=== PATIENT | female | born 1970 | race Caucasian/White ===

== ENCOUNTER 2019-01-12 17:37 | Inpatient (IN) | payer BC, MEDICARE ==
[2019-01-12] MEDS ORDERED: SODIUM CHLORIDE 0.9% 1,000 ML IV STA (18:12)
[2019-01-12] MEDS ORDERED: SODIUM CHLORIDE 0.9% 500 ML 500 ML IV STA (18:12)
[2019-01-12] MEDS ORDERED: SODIUM CHLORIDE 0.9% 1,000 ML IV ONE (18:13)
--- NOTE | 2019-01-12 18:25 | ED ---
Weakness HPI - General Source: patient, family Mode of arrival: wheelchair Limitations: no limitations <Adriana Knox - Last Filed: 01/12/19 23:03> <GagansindiWanda Elvin - Last Filed: 01/15/19 02:29> - General Chief complaint: Weakness Stated complaint: Weakness Time Seen by Provider: 01/12/19 18:01 - History of Present Illness Initial comments: 48-year-old female with history of malnutrition, hypoalbuminemia, chronic back pain with morphine pump, chronic hypotension presents emergency department today for chief complaint of generalized weakness. Patient states she was recently discharged approximately 3-4 days ago from [facility] where she was admitted for malnutrition, hypoalbuminemia, urinary tract infection. Patient states that since her discharge she has had increasing weakness. She describes this as generalized denies any localized weakness of the upper or lower extremities denies any headache nausea vomiting diarrhea melena hematochezia. Patient does admit to upper and lower extremity swelling that has been ongoing for "quite some time". Patient had an echocardiogram with unremarkable results, cardiology evaluation by Dr. Ambriz. Patient denies any chest pain shortness of breath abdominal pain or any other complaints remaining review of systems negative upon arrival patient blood pressure found to be decreased. (Adriana Knox) - Related Data Home Medications Medication Instructions Recorded Confirmed FLUoxetine HCL [PROzac] 40 mg PO DAILY 01/23/15 01/12/19 Potassium Chloride [Klor-Con 10] 10 meq PO BID 01/23/15 01/12/19 Cholestyramine (with Sugar) 4 gm PO DAILY PRN 01/12/19 01/12/19 [Cholestyramine Packet] Ergocalciferol (Vitamin D2) 50,000 unit PO MO 01/12/19 01/12/19 [Drisdol] FLUoxetine HCL [PROzac] 20 mg PO DAILY 01/12/19 01/12/19 Hyoscyamine Sulfate [Levbid] 0.375 mg PO DAILY 01/12/19 01/12/19 Levothyroxine Sodium [Synthroid] 100 mcg PO DAILY 01/12/19 01/12/19 Morphine 1mg/1ml Pain Pump 1 dose INTRATHECA CONTINUOUS 01/12/19 01/12/19 Pantoprazole [Protonix] 40 mg PO DAILY 01/12/19 01/12/19 Pramipexole [Mirapex] 0.25 mg PO HS 01/12/19 01/12/19 Promethazine HCl 12.5 mg PO Q6H PRN 01/12/19 01/12/19 lamoTRIgine [LaMICtal] 250 mg PO BID 01/12/19 01/12/19 risperiDONE [RisperDAL] 1 mg PO HS 01/12/19 01/12/19 Allergies Allergy/AdvReac Type Severity Reaction Status Date / Time Penicillins Allergy Unknown Verified 01/12/19 21:18 Sulfa (Sulfonamide Allergy Unknown Verified 01/12/19 21:18 Antibiotics) Review of Systems ROS Other: All systems not noted in ROS Statement are negative. <Adriana Knox - Last Filed: 01/12/19 23:03> ROS Other: All systems not noted in ROS Statement are negative. <Wanda Santillan - Last Filed: 01/15/19 02:29> ROS Statement: Those systems with pertinent positive or pertinent negative responses have been documented in the HPI. Past Medical History Additional Past Medical History / Comment(s): chronic pain History of Any Multi-Drug Resistant Organisms: None Reported Additional Past Surgical History / Comment(s): pain pump Past Psychological History: No Psychological Hx Reported Smoking Status: Current every day smoker Past Alcohol Use History: None Reported Past Drug Use History: None Reported - Past Family History Father Family Medical History: Diabetes Mellitus, Renal Disease <Adriana Knox - Last Filed: 01/12/19 23:03> General Exam Limitations: no limitations <Adriana Knox - Last Filed: 01/12/19 23:03> - General Exam Comments Initial Comments: General: The patient is awake and alert, drowsy Eye: +2 mm pupils are equal, round and reactive to light, extra-ocular movements are intact. No nystagmus. There is normal conjunctiva bilaterally. No signs of icterus. Ears, nose, mouth and throat: There are moist mucous membranes and no oral lesions. Neck: The neck is supple, there is no tenderness or JVD. Cardiovascular: There is a regular rate and rhythm. No murmur, rub or gallop is appreciated. Respiratory: Lungs are clear to auscultation, respirations are non-labored, breath sounds are equal. No wheezes, stridor, rales, or rhonchi. Gastrointestinal: Soft, non-distended, non-tender abdomen without masses or organomegaly noted. There is no rebound or guarding present. Musculoskeletal: Normal ROM, no tenderness. Strength 5/5. Sensation intact. Radial pulses equal bilaterally 2+. Neurological: A&O x 3. CN II-XII intact, There are no obvious motor or sensory deficits. Coordination appears grossly intact. Speech is normal. Skin: Skin is warm and dry and no rashes or lesions are noted. UE and LE b/l edema Psychiatric: Cooperative (Adriana Knox) Course Vital Signs 01/12/19 01/12/19 01/12/19 17:45 19:38 21:18 Temperature 98.0 F 98.6 F Pulse Rate 97 93 Respiratory 18 16 18 Rate Blood Pressure 88/59 86/48 O2 Sat by Pulse 97 100 Oximetry EKG Findings - EKG Comments: EKG Findings:: Ventricular rate 93 bpm, MT interval 126 ms, QRS duration 78 ms, QT/QTc 432/537. Nonspecific ST-T wave abnormality. Prolonged QT however there is significant artifact appreciated. EKG personally reviewed/interpretted. <Adriana Knox - Last Filed: 01/12/19 23:03> Medical Decision Making - Lab Data Result diagrams: 01/12/19 18:30 01/12/19 18:30 <Adriana Knox - Last Filed: 01/12/19 23:03> - Lab Data Result diagrams: 01/14/19 06:47 01/14/19 06:47 <Wanda Santillan - Last Filed: 01/15/19 02:29> - Medical Decision Making 48-year-old female recently admitted for malnutrition hypoalbuminemia. Recent weight loss over course of 2 months with progressive weakness. Recent d/c from [facility]. Patient found to be drowsy, given narcan as she is on morphine drip and was much more alert. [place] CT (-). CXR no significant findings. Urinalysis reveals UTI patient given ceftriaxone. Patient will be admitted for further evaluation of weight loss, generalized weakness hypoalbuminemia/nutrition consider TPN gastroenterology on consult. Patient agreeable to admission. Dr. Liz accepted admission' (Adriana Knox) I was available for consultation in the emergency department. The history and physical exam were done by the midlevel provider. I was consulted for this patients care. I reviewed the case with the midlevel provider and based on their presentation of the patient, I agree with the assessment, medical decision making and plan of care as documented. Chart was dictated using WiC[employer] dictation software. Attempts were made to correct any dictation errors however some typographical errors may persist. (Wanda Santillan) - Lab Data Lab Results 01/12/19 01/12/19 01/12/19 Range/Units 18:30 18:30 18:30 WBC 11.4 H (3.8-10.6) k/uL RBC 2.55 L (3.80-5.40) m/uL Hgb 8.5 L (11.4-16.0) gm/dL Hct 26.7 L (34.0-46.0) % MCV 104.7 H (80.0-100.0) fL MCH 33.5 (25.0-35.0) pg MCHC 32.0 (31.0-37.0) g/dL RDW 16.9 H (11.5-15.5) % Plt Count 392 (150-450) k/uL Neutrophils % 90 % Lymphocytes % 7 % Monocytes % 2 % Eosinophils % 0 % Basophils % 0 % Neutrophils # 10.2 H (1.3-7.7) k/uL Lymphocytes # 0.8 L (1.0-4.8) k/uL Monocytes # 0.3 (0-1.0) k/uL Eosinophils # 0.0 (0-0.7) k/uL Basophils # 0.0 (0-0.2) k/uL Hypochromasia Slight Anisocytosis Slight Macrocytosis Moderate PT (9.0-12.0) sec INR (<1.2) APTT (22.0-30.0) sec Sodium 136 L (137-145) mmol/L Potassium 3.5 (3.5-5.1) mmol/L Chloride 102 (98-107) mmol/L Carbon Dioxide 29 (22-30) mmol/L Anion Gap 5 mmol/L BUN 12 (7-17) mg/dL Creatinine 0.42 L (0.52-1.04) mg/dL Est GFR (CKD-EPI)AfAm >90 (>60 ml/min/1.73 sqM) Est GFR (CKD-EPI)NonAf >90 (>60 ml/min/1.73 sqM) Glucose 83 (74-99) mg/dL POC Glucose (mg/dL) (75-99) mg/dL POC Glu Marketing Analyst ID Plasma Lactic Acid Nikko 1.7 (0.7-2.0) mmol/L Calcium 7.7 L (8.4-10.2) mg/dL Phosphorus 2.3 L (2.5-4.5) mg/dL Magnesium 1.7 (1.6-2.3) mg/dL Total Bilirubin 1.2 (0.2-1.3) mg/dL AST 127 H (14-36) U/L ALT 51 (9-52) U/L Alkaline Phosphatase 265 H (38-126) U/L Ammonia <9 (<30) umol/L Creatine Kinase 167 H (30-135) U/L Troponin I (0.000-0.034) ng/mL Total Protein 4.8 L (6.3-8.2) g/dL Albumin 2.2 L (3.5-5.0) g/dL TSH 3.000 (0.465-4.680) mIU/L Urine Color Urine Appearance (Clear) Urine pH (5.0-8.0) Ur Specific Hitchins (1.001-1.035) Urine Protein (Negative) Urine Glucose (UA) (Negative) Urine Ketones (Negative) Urine Blood (Negative) Urine Nitrite (Negative) Urine Bilirubin (Negative) Urine Urobilinogen (<2.0) mg/dL Ur Leukocyte Esterase (Negative) Urine RBC (0-5) /hpf Urine WBC (0-5) /hpf Ur Squamous Epith Cells (0-4) /hpf Urine Bacteria (None) /hpf Urine Mucus (None) /hpf Serum Alcohol <10 mg/dL Blood Type Blood Type Confirm Blood Type Recheck Bld Type Recheck Status Antibody Screen Spec Expiration Date 01/12/19 01/12/19 01/12/19 Range/Units 18:30 18:30 18:30 WBC (3.8-10.6) k/uL RBC (3.80-5.40) m/uL Hgb (11.4-16.0) gm/dL Hct (34.0-46.0) % MCV (80.0-100.0) fL MCH (25.0-35.0) pg MCHC (31.0-37.0) g/dL RDW (11.5-15.5) % Plt Count (150-450) k/uL Neutrophils % % Lymphocytes % % Monocytes % % Eosinophils % % Basophils % % Neutrophils # (1.3-7.7) k/uL Lymphocytes # (1.0-4.8) k/uL Monocytes # (0-1.0) k/uL Eosinophils # (0-0.7) k/uL Basophils # (0-0.2) k/uL Hypochromasia Anisocytosis Macrocytosis PT 12.1 H (9.0-12.0) sec INR 1.2 H (<1.2) APTT 24.5 (22.0-30.0) sec Sodium (137-145) mmol/L Potassium (3.5-5.1) mmol/L Chloride (98-107) mmol/L Carbon Dioxide (22-30) mmol/L Anion Gap mmol/L BUN (7-17) mg/dL Creatinine (0.52-1.04) mg/dL Est GFR (CKD-EPI)AfAm (>60 ml/min/1.73 sqM) Est GFR (CKD-EPI)NonAf (>60 ml/min/1.73 sqM) Glucose (74-99) mg/dL POC Glucose (mg/dL) (75-99) mg/dL POC Glu Marketing Analyst ID Plasma Lactic Acid Nikko (0.7-2.0) mmol/L Calcium (8.4-10.2) mg/dL Phosphorus (2.5-4.5) mg/dL Magnesium (1.6-2.3) mg/dL Total Bilirubin (0.2-1.3) mg/dL AST (14-36) U/L ALT (9-52) U/L Alkaline Phosphatase (38-126) U/L Ammonia (<30) umol/L Creatine Kinase (30-135) U/L Troponin I <0.012 (0.000-0.034) ng/mL Total Protein (6.3-8.2) g/dL Albumin (3.5-5.0) g/dL TSH (0.465-4.680) mIU/L Urine Color Urine Appearance (Clear) Urine pH (5.0-8.0) Ur Specific Hitchins (1.001-1.035) Urine Protein (Negative) Urine Glucose (UA) (Negative) Urine Ketones (Negative) Urine Blood (Negative) Urine Nitrite (Negative) Urine Bilirubin (Negative) Urine Urobilinogen (<2.0) mg/dL Ur Leukocyte Esterase (Negative) Urine RBC (0-5) /hpf Urine WBC (0-5) /hpf Ur Squamous Epith Cells (0-4) /hpf Urine Bacteria (None) /hpf Urine Mucus (None) /hpf Serum Alcohol mg/dL Blood Type O Positive Blood Type Confirm Blood Type Recheck No Previous Record Bld Type Recheck Status CABO Indicated Antibody Screen NEGATIVE Spec Expiration Date 01/15/2019232901/12/19 01/12/19 01/13/19 Range/Units 18:30 18:36 07:09 WBC 8.3 (3.8-10.6) k/uL RBC 2.34 L (3.80-5.40) m/uL Hgb 7.8 L (11.4-16.0) gm/dL Hct 24.2 L (34.0-46.0) % MCV 103.2 H (80.0-100.0) fL MCH 33.3 (25.0-35.0) pg MCHC 32.2 (31.0-37.0) g/dL RDW 17.0 H (11.5-15.5) % Plt Count 373 (150-450) k/uL Neutrophils % 86 % Lymphocytes % 10 % Monocytes % 4 % Eosinophils % 1 % Basophils % 0 % Neutrophils # 7.1 (1.3-7.7) k/uL Lymphocytes # 0.8 L (1.0-4.8) k/uL Monocytes # 0.3 (0-1.0) k/uL Eosinophils # 0.1 (0-0.7) k/uL Basophils # 0.0 (0-0.2) k/uL Hypochromasia Anisocytosis Slight Macrocytosis Moderate PT (9.0-12.0) sec INR (<1.2) APTT (22.0-30.0) sec Sodium (137-145) mmol/L Potassium (3.5-5.1) mmol/L Chloride (98-107) mmol/L Carbon Dioxide (22-30) mmol/L Anion Gap mmol/L BUN (7-17) mg/dL Creatinine (0.52-1.04) mg/dL Est GFR (CKD-EPI)AfAm (>60 ml/min/1.73 sqM) Est GFR (CKD-EPI)NonAf (>60 ml/min/1.73 sqM) Glucose (74-99) mg/dL POC Glucose (mg/dL) (75-99) mg/dL POC Glu Marketing Analyst ID Plasma Lactic Acid Nikko (0.7-2.0) mmol/L Calcium (8.4-10.2) mg/dL Phosphorus (2.5-4.5) mg/dL Magnesium (1.6-2.3) mg/dL Total Bilirubin (0.2-1.3) mg/dL AST (14-36) U/L ALT (9-52) U/L Alkaline Phosphatase (38-126) U/L Ammonia (<30) umol/L Creatine Kinase (30-135) U/L Troponin I (0.000-0.034) ng/mL Total Protein (6.3-8.2) g/dL Albumin (3.5-5.0) g/dL TSH (0.465-4.680) mIU/L Urine Color Dark Brown Urine Appearance Cloudy H (Clear) Urine pH 6.5 (5.0-8.0) Ur Specific Hitchins 1.032 (1.001-1.035) Urine Protein 2+ H (Negative) Urine Glucose (UA) Negative (Negative) Urine Ketones 4+ H (Negative) Urine Blood Moderate H (Negative) Urine Nitrite Positive H (Negative) Urine Bilirubin 1+ H (Negative) Urine Urobilinogen >12.0 (<2.0) mg/dL Ur Leukocyte Esterase Large H (Negative) Urine RBC 148 H (0-5) /hpf Urine WBC >182 H (0-5) /hpf Ur Squamous Epith Cells 1 (0-4) /hpf Urine Bacteria Occasional H (None) /hpf Urine Mucus Many H (None) /hpf Serum Alcohol mg/dL Blood Type Blood Type Confirm O Positive Blood Type Recheck Bld Type Recheck Status Antibody Screen Spec Expiration Date 01/13/19 01/13/19 Range/Units 07:09 12:02 WBC (3.8-10.6) k/uL RBC (3.80-5.40) m/uL Hgb (11.4-16.0) gm/dL Hct (34.0-46.0) % MCV (80.0-100.0) fL MCH (25.0-35.0) pg MCHC (31.0-37.0) g/dL RDW (11.5-15.5) % Plt Count (150-450) k/uL Neutrophils % % Lymphocytes % % Monocytes % % Eosinophils % % Basophils % % Neutrophils # (1.3-7.7) k/uL Lymphocytes # (1.0-4.8) k/uL Monocytes # (0-1.0) k/uL Eosinophils # (0-0.7) k/uL Basophils # (0-0.2) k/uL Hypochromasia Anisocytosis Macrocytosis PT (9.0-12.0) sec INR (<1.2) APTT (22.0-30.0) sec Sodium 140 (137-145) mmol/L Potassium 3.2 L (3.5-5.1) mmol/L Chloride 108 H (98-107) mmol/L Carbon Dioxide 25 (22-30) mmol/L Anion Gap 7 mmol/L BUN 11 (7-17) mg/dL Creatinine 0.40 L (0.52-1.04) mg/dL Est GFR (CKD-EPI)AfAm >90 (>60 ml/min/1.73 sqM) Est GFR (CKD-EPI)NonAf >90 (>60 ml/min/1.73 sqM) Glucose 62 L (74-99) mg/dL POC Glucose (mg/dL) 82 (75-99) mg/dL POC Glu Marketing Analyst ID Ziarko, Diana Plasma Lactic Acid Nikko (0.7-2.0) mmol/L Calcium 7.3 L (8.4-10.2) mg/dL Phosphorus (2.5-4.5) mg/dL Magnesium (1.6-2.3) mg/dL Total Bilirubin (0.2-1.3) mg/dL AST (14-36) U/L ALT (9-52) U/L Alkaline Phosphatase (38-126) U/L Ammonia (<30) umol/L Creatine Kinase (30-135) U/L Troponin I (0.000-0.034) ng/mL Total Protein (6.3-8.2) g/dL Albumin (3.5-5.0) g/dL TSH (0.465-4.680) mIU/L Urine Color Urine Appearance (Clear) Urine pH (5.0-8.0) Ur Specific Hitchins (1.001-1.035) Urine Protein (Negative) Urine Glucose (UA) (Negative) Urine Ketones (Negative) Urine Blood (Negative) Urine Nitrite (Negative) Urine Bilirubin (Negative) Urine Urobilinogen (<2.0) mg/dL Ur Leukocyte Esterase (Negative) Urine RBC (0-5) /hpf Urine WBC (0-5) /hpf Ur Squamous Epith Cells (0-4) /hpf Urine Bacteria (None) /hpf Urine Mucus (None) /hpf Serum Alcohol mg/dL Blood Type Blood Type Confirm Blood Type Recheck Bld Type Recheck Status Antibody Screen Spec Expiration Date Disposition Is patient prescribed a controlled substance at d/c from ED?: No Time of Disposition: 20:41 Decision to Admit Reason: Admit from EC Decision Date: 01/12/19 Decision Time: 20:41 <Adriana Knox - Last Filed: 01/12/19 23:03> <Wanda Santillan - Last Filed: 01/15/19 02:29> Clinical Impression: Hypoalbuminemia, Chronic hypotension, Malnutrition, Hypocalcemia, Weakness, Edema, UTI (urinary tract infection) Disposition: ADMITTED IP TO THIS HOSP Condition: Stable
[2019-01-12 18:51] LABS: Anisocytosis Slight; Basophils % (A) 0 %; Eosinophils % (A) 0 %; HCT 26.7 % (34.0-46.0); HGB 8.5 gm/dL (11.4-16.0); Hypochromasia Slight; Lymphocytes # (A) 0.8 k/uL (1.0-4.8); Lymphocytes % (A) 7 %; MCH 33.5 pg (25.0-35.0); MCV 104.7 fL (80.0-100.0); Macrocytosis Moderate; Mean Platelet Volume 6.4; Monocytes # (A) 0.3 k/uL (0-1.0); Monocytes % (A) 2 %; Neutrophils # (A) 10.2 k/uL (1.3-7.7); Neutrophils % (A) 90 %; Platelet Count 392 k/uL (150-450); RBC 2.55 m/uL (3.80-5.40); RDW 16.9 % (11.5-15.5); WBC 11.4 k/uL (3.8-10.6)
[2019-01-12 19:03] LABS: Ammonia <9 umol/L (<30); Lactic Acid, Venous 1.7 mmol/L (0.7-2.0)
[2019-01-12 19:05] LABS: ALT 51 U/L (9-52); AST 127 U/L (14-36); African American GFR (CKD) >90 (>60 ml/min/1.73 sqM); Albumin 2.2 g/dL (3.5-5.0); Alcohol <10 mg/dL; Alkaline Phosphatase 265 U/L (38-126); Anion Gap 5 mmol/L; Blood Urea Nitrogen 12 mg/dL (7-17); Calcium 7.7 mg/dL (8.4-10.2); Carbon Dioxide 29 mmol/L (22-30); Chloride 102 mmol/L (98-107); Creatine Kinase 167 U/L (30-135); Glucose 83 mg/dL (74-99); Magnesium 1.7 mg/dL (1.6-2.3); Non-African American GFR(CKD) >90 (>60 ml/min/1.73 sqM); Phosphorus 2.3 mg/dL (2.5-4.5); Potassium 3.5 mmol/L (3.5-5.1); Sodium 136 mmol/L (137-145); Total Bilirubin 1.2 mg/dL (0.2-1.3); Total Protein 4.8 g/dL (6.3-8.2)
--- NOTE | 2019-01-12 19:10 | XR ---
EXAMINATION TYPE: XR chest 2V DATE OF EXAM: 01/12/2019 COMPARISON: NONE HISTORY: Weakness TECHNIQUE: Frontal and lateral views of the chest are obtained. FINDINGS: Heart and mediastinum are normal. There is some minimal infiltrate left lower lobe. The ot her lung guadarrama are clear. There are no hilar masses. There is slight blunting posterior costophrenic angles. IMPRESSION: Small pleural effusions are seen posteriorly. Minimal infiltrate left lower lobe. No hea rt failure seen.
[2019-01-12 19:22] LABS: Appearance,Urine Cloudy (Clear); Bacteria,Urine Occasional /hpf; Bilirubin,Urine 1+ (Negative); Blood,Urine Moderate (Negative); Color,Urine Dark Brown; Glucose,Urine (UA) Negative (Negative); Ketones,Urine 4+ (Negative); Leukocyte Esterase,Urine Large (Negative); Mucus,Urine Many /hpf; Nitrite,Urine Positive (Negative); PH, Urine 6.5 (5.0-8.0); Protein,Urine 2+ (Negative); RBC,Urine 148 /hpf (0-5); Specific Gravity,Urine 1.032 (1.001-1.035); Squamous Epithelial Cell,Urine 1 /hpf (0-4); Urobilinogen,Urine >12.0 mg/dL (<2.0); WBC,Urine >182 /hpf (0-5)
[2019-01-12 19:30] LABS: INR 1.2 (<1.2); Partial Thromboplastin Time 24.5 sec (22.0-30.0); Prothrombin Time 12.1 sec (9.0-12.0)
[2019-01-12] MEDS ORDERED: NALOXONE 0.4 MG/ML 10 ML VIAL IVP PRN (19:33)
[2019-01-12] MEDS ORDERED: NALOXONE 0.4 MG/ML 1 ML VIAL IV PRN (19:39)
--- NOTE | 2019-01-12 20:35 | CT ---
EXAMINATION TYPE: CT brain wo con DATE OF EXAM: 01/12/2019 COMPARISON: None HISTORY: Increasing weakness. CT DLP: 1092.4 mGycm Automated exposure control for dose reduction was used. FINDINGS: There is some cerebral cortical atrophy. There is no mass effect nor midline shift. There is no sign of intracranial hemorrhage. The calvarium is intact. IMPRESSION: MILD ATROPHY. NO ACUTE INTRACRANIAL ABNORMALITY.
[2019-01-13] MEDS: SODIUM CHLORIDE 0.9% 1,000 ML IV SCH ×3 (02:23→13:42)
[2019-01-13] MEDS: LEVOTHYROXINE 100 MCG TAB PO SCH (05:34)
[2019-01-13 08:06] LABS: African American GFR (CKD) >90 (>60 ml/min/1.73 sqM); Anion Gap 7 mmol/L; Blood Urea Nitrogen 11 mg/dL (7-17); Calcium 7.3 mg/dL (8.4-10.2); Carbon Dioxide 25 mmol/L (22-30); Chloride 108 mmol/L (98-107); Glucose 62 mg/dL (74-99); Non-African American GFR(CKD) >90 (>60 ml/min/1.73 sqM); Potassium 3.2 mmol/L (3.5-5.1); Sodium 140 mmol/L (137-145)
[2019-01-13] MEDS ORDERED: Potassium Replacement Protocol 1 EACH MISC MISCELLANE PRN ×2 (08:18→15:08)
[2019-01-13 08:22] LABS: Anisocytosis Slight; Basophils % (A) 0 %; Eosinophils # (A) 0.1 k/uL (0-0.7); Eosinophils % (A) 1 %; HCT 24.2 % (34.0-46.0); HGB 7.8 gm/dL (11.4-16.0); Lymphocytes # (A) 0.8 k/uL (1.0-4.8); Lymphocytes % (A) 10 %; MCH 33.3 pg (25.0-35.0); MCHC 32.2 g/dL (31.0-37.0); MCV 103.2 fL (80.0-100.0); Macrocytosis Moderate; Mean Platelet Volume 8.1; Monocytes # (A) 0.3 k/uL (0-1.0); Monocytes % (A) 4 %; Neutrophils # (A) 7.1 k/uL (1.3-7.7); Neutrophils % (A) 86 %; Platelet Count 373 k/uL (150-450); RBC 2.34 m/uL (3.80-5.40); WBC 8.3 k/uL (3.8-10.6)
[2019-01-13] MEDS: HYOSCYAMINE SULFATE 0.375 MG TAB.ER.12H PO SCH (08:28)
[2019-01-13] MEDS: lamoTRIgine 100 MG TAB PO SCH ×2 (08:28→22:05)
[2019-01-13] MEDS: PANTOPRAZOLE 40 MG TABLET PO SCH (08:28)
[2019-01-13] MEDS: POTASSIUM CHLORIDE ER 10 MEQ TAB.ER.PRT PO SCH ×2 (08:28→22:06)
[2019-01-13] MEDS: FLUoxetine HCL 20 MG CAP PO SCH (08:28)
[2019-01-13] MEDS: POTASSIUM CHLORIDE ER 20 MEQ TAB.ER PO SCH ×2 (08:28→10:54)
[2019-01-13] MEDS ORDERED: CHOLESTYRAMINE (WITH SUGAR) 4 GM PACKET PO PRN (09:00)
[2019-01-13 11:46] VITALS: BMI 20.5
[2019-01-13 12:04] LABS: Glucose,Whole Blood 82 mg/dL (75-99)
--- NOTE | 2019-01-13 13:59 | CT ---
EXAMINATION TYPE: CT CervThorLumbar spine wo con DATE OF EXAM: 01/13/2019 COMPARISON: None HISTORY: inability to move limbs CT DLP: 1186.4 mGycm Automated exposure control for dose reduction was used. CT of the cervical spine and thoracic spine was performed with bone and soft tissue windows reviewed. Axial sagittal and coronal data sets are also reviewed. FINDINGS: Cervical spine: There is no evidence for fracture or malalignment. Moderate degenerative narrowing no mitul at C5-6 and C6-7. Mild posterior disc bulge. Alignment is anatomic. No obvious disc herniation or central stenosis. Thoracic spine: No evidence of fracture or malalignment. Scattered mild degenerative disc space narro wing and mild ventral spondylosis. There's been prior lumbar laminectomy at T8-T10-11. No obvious miranda tral stenosis or disc herniation. No destructive mass appreciated. Left greater than right pleural ef fusion with left basilar atelectasis. Scattered left upper lobe infiltrate seen. IMPRESSION: NO EVIDENCE FOR FRACTURE OR DISLOCATION. NO DESTRUCTIVE MASSES SEEN. DEGENERATIVE DISC SPACE NARROWIN G DISCUSSED.
[2019-01-13] MEDS ORDERED: LORazepam 2 MG/ML INJ IV PRN (14:45)
[2019-01-13] MEDS ORDERED: Magnesium Replacement Protocol 1 EACH MISC MISCELLANE PRN (15:08)
[2019-01-13] MEDS ORDERED: IOPAMIDOL CONTRAST (ORAL USE) VIAL PO PRN (15:15)
--- NOTE | 2019-01-13 16:24 | HP ---
HISTORY AND PHYSICAL DATE OF SERVICE: 01/13/2019 I am covering for Dr. Looney. CHIEF COMPLAINTS: Weakness. HISTORY OF PRESENT ILLNESS: This 48-year-old woman with a past medical history of multiple medical problems including chronic pains, no history of pain pump, history of nicotine dependence, being followed by Dr. Looney in the outpatient setting has also seen Dr. Reno who inserted the pain pump. The patient is complaining of generalized pain. Patient apparently had a fall in July, hitting her head hard and subsequently for the last 2 months the patient has noted increasing weakness. The patient is unable to walk and the patient came to the patient taken to [facility] and was admitted for further evaluation and treatment. The patient also has some incontinence also. The patient also had admission in [facility] as well. The patient also had features of malnutrition, hypoalbuminemia, UTI at the [facility]. Because of generalized weakness, the patient came to [facility] and was admitted for further evaluation and treatment. Apparently a dose of Narcan made some changes in the ER. The CT scan of the brain done in the ER showed mild atrophy. No acute abnormality. A CT scan of the cervical thoracic lumbar spine was also requested which showed no evidence of any fracture or dislocation or destruction of masses and DJD was also noted. There is no history of fever, rigors or chills. No history of headache, loss of consciousness or seizures. PAST MEDICAL HISTORY: History of chronic pain syndrome, history of pain pump, history of nicotine dependence. MEDICATIONS: Prior to admission include home medications are: 1. Promethazine 12.5 mg q.6h p.r.n. 2. Mirapex 0.25 mg q.h.s. 3. Vitamin D2 50,000 p.o. Monday. 4. Cholestyramine packet 4 g p.r.n. 5. Risperdal 1 mg p.o. q.h.s. 6. Morphine 1 dose continuously. 7. Klor-Con 20 mEq p.o. b.i.d. 8. Protonix 40 mg p.o. daily. 9. Synthroid 100 mcg p.o. daily. 10.Lamictal 250 mg p.o. b.i.d. 11.Levbid 0.375 mg p.o. daily. 12.Prozac 20 mg and 40 mg p.o. daily. ALLERGIES: PENICILLIN AND SULFA. FAMILY HISTORY: History of diabetes, renal disease in the family. SOCIAL HISTORY: History of smoking. No history of alcohol intake. REVIEW OF SYSTEMS: ENT: No diminished vision. No diminished hearing. CARDIOVASCULAR: No angina or palpitations. RESPIRATORY: As mentioned earlier. GI no nausea or vomiting. no dysuria. Nervous system: No numbness or weakness. Allergy/Immunology: No asthma or hayfever. MUSCULOSKELETAL as mentioned earlier. Hematology/Oncology: No history of anemia. Endocrine: Hypothyroidism. CONSTITUTIONAL: As mentioned earlier. DERMATOLOGY: Negative. RHEUMATOLOGY: Negative. PSYCHIATRY: As mentioned earlier. PHYSICAL EXAMINATION: Alert and oriented x3. Pulse 90, blood pressure 92/54, respirations 14, temperature 97.2, pulse ox 97% on room air. HEENT is conjunctivae normal. Oral mucosa moist. NECK is no jugular venous distention. No carotid bruit. No lymph node enlargement. Cardiovascular systems: S1, S2 muffled. Respirations: Breath sounds diminished in the bases. Bilateral scattered rhonchi and crackles. ABDOMEN: Soft, nontender. No mass palpable. LEGS: No edema. No swelling. NERVOUS SYSTEM: Higher functions as mentioned earlier. Otherwise significant wasting and weakness also present. Diffuse weakness. Reflexes diminished. Some sensory abnormalities in the lower limbs also present. LAB: Abnormalities: WBC 8.2, hemoglobin 7.8, sodium 140, potassium 3.2. Other labs are noted. ASSESSMENT: 1. Diffuse weakness and difficulty in walking, rule out diffuse radiculopathy. 2. Rule out spinal cord lesion. 3. Increased WBC. 4. Anemia, macrocytic. 5. Hyponatremia. 6. Increased AST. 7. Increased creatinine kinase. 8. Possible urinary tract infection. 9. Hypothyroidism. 10.Hypokalemia. 11.Chronic pain syndrome on pain pump. 12.History of nicotine dependence, continued ongoing. 13.Mild to moderate malnutrition. 14.FULL CODE. RECOMMENDATIONS AND DISCUSSION: In this 48-year-old woman who presented with multiple complex medical issues, we will monitor the patient closely, continue the current medications, management and symptomatic treatment. Exact etiology of weakness are noted at this time. I recommend a CT scan of the abdomen and pelvis and also recommended MRI also if the CTs did not show any acute abnormality. Otherwise, neurology consultations. Follow closely with neurology and the patient apparently had some relief after Narcan injection. We will try to repeat also. Resume the home medication, the rest of medication. DVT prophylaxis. See orders for details. Symptomatic treatment. Prognosis guarded. Further recommendations to follow. A copy of dictation being forwarded to Dr. Looney who is the primary physician. MMODL / JAYCOBN: [id number] /
--- NOTE | 2019-01-13 18:41 | MR ---
EXAMINATION TYPE: MR cspine/tspine/lspine wo con DATE OF EXAM: 01/13/2019 COMPARISON: None HISTORY: Chronic pain TECHNIQUE: Multiplanar, multisequence imaging of the lumbar and thoracic and cervical spine is perfor med without IV contrast. FINDINGS: Exam limited slightly by motion. Cervical vertebra have normal alignment. There is some mil d disc space narrowing at C5-6 C6-7. Cervical spinal cord shows normal signal pattern. There is no ed elizabeth. I see no cervical spinal stenosis. The canal is narrowed to 7.5 mm at C5-6 and C6-7. There is sm all posterior disc bulging and herniation at C5-6 and C6-7 without significant impingement on the spi nal canal. Thoracic vertebra have normal alignment. Thoracic spinal cord has fairly normal signal pattern. There is no edema. There is no thoracic spinal stenosis. There is no thoracic paraspinal mass. There is ev idence of bilateral pleural effusions. The lumbar vertebra have normal alignment. There is a mild posterior disc herniation at L4-5 and L5-S 1 without compromise of the spinal canal. There is developmentally large lumbar spinal canal. The amanda roforamina are fairly well-maintained. Lumbar nerve roots appear intact. There is no lumbar paraspina l mass. There is no evidence of cervical thoracic or lumbar compression fracture. IMPRESSION: Mild spondylotic changes in the lower cervical spine and lower lumbar spine. Small posterior disc her niations as above in the lower cervical spine and lumbar spine. No evidence of any significant spinal stenosis. No fracture seen.
--- NOTE | 2019-01-13 21:08 | P.CONS ---
History of Present Illness - Reason for Consult Consult date: 01/13/19 Weight loss, concern for malignancy, anemia Requesting physician: Reji Pan - Chief Complaint Weakness - History of Present Illness 48-year-old female with a medical history significant for chronic pain treated with a morphine pump presented to the hospital with complaints of generalized weakness. She was recently discharged approximately 3-4 days ago from [facility] where she was treated for urinary tract infection, hypoalbuminemia and malnutrition. The patient reports that she has had weakness of the upper and lower extremities since hitting her head a few months ago. On presentation the patient was felt to be anemic with a hemoglobin of 8.3 which was subsequently found to be 7.8 on repeat blood draw with an MCV of 105.2, WBC 8.3, platelet count 373,000, INR 1.2, total bilirubin 1.2, alkaline phosphatase 265, AST 127 and ALTs 51. The patient denies any signs or symptoms of GI bleeding. She denies any change in bowel habits, blood per rectum, nausea, vomiting or hematemesis. The patient reports previous evaluation with colonoscopy in the past few months which was negative. She states that this was performed at [facility]. Review of Systems REVIEW OF SYSTEMS: CONSTITUTIONAL: Denies any fevers, chills, but does report weakness and fatigue. CARDIOVASCULAR: Denies any chest pain, palpitations high or low blood pressures RESPIRATORY: Denies any shortness of breath, hemoptysis or cough. GENITOURINARY: No dysuria or hematuria, recent treatment of UTI. MUSCULOSKELETAL: Generalized weakness with patient's having little mobility of arms and legs. SKIN: Denies any new rashes or lesions, jaundice or pallor. PSYCHIATRIC: Denies any depression or anxiety. NEUROLOGY: Denies headache, denies any new focal deficits had weakness in her arms and legs and limited mobility. EARS/NOSE/THROAT: No recent hearing change, congestion, nasal discharge or sore throat. EYES: No pain in eyes, discharge or change in vision. GASTROINTESTINAL: As per HPI. Past Medical History Additional Past Medical History / Comment(s): chronic pain History of Any Multi-Drug Resistant Organisms: None Reported Additional Past Surgical History / Comment(s): pain pump Past Anesthesia/Blood Transfusion Reactions: No Reported Reaction Past Psychological History: No Psychological Hx Reported Smoking Status: Current every day smoker Past Alcohol Use History: None Reported Past Drug Use History: None Reported - Past Family History Father Family Medical History: Diabetes Mellitus, Renal Disease Medications and Allergies Home Medications Medication Instructions Recorded Confirmed Type FLUoxetine HCL [PROzac] 40 mg PO DAILY 01/23/15 01/12/19 History Potassium Chloride [Klor-Con 10] 10 meq PO BID 01/23/15 01/12/19 History Cholestyramine (with Sugar) 4 gm PO DAILY PRN 01/12/19 01/12/19 History [Cholestyramine Packet] Ergocalciferol (Vitamin D2) 50,000 unit PO MO 01/12/19 01/12/19 History [Drisdol] FLUoxetine HCL [PROzac] 20 mg PO DAILY 01/12/19 01/12/19 History Hyoscyamine Sulfate [Levbid] 0.375 mg PO DAILY 01/12/19 01/12/19 History Levothyroxine Sodium [Synthroid] 100 mcg PO DAILY 01/12/19 01/12/19 History Morphine 1mg/1ml Pain Pump 1 dose INTRATHECA CONTINUOUS 01/12/19 01/12/19 History Pantoprazole [Protonix] 40 mg PO DAILY 01/12/19 01/12/19 History Pramipexole [Mirapex] 0.25 mg PO HS 01/12/19 01/12/19 History Promethazine HCl 12.5 mg PO Q6H PRN 01/12/19 01/12/19 History lamoTRIgine [LaMICtal] 250 mg PO BID 01/12/19 01/12/19 History risperiDONE [RisperDAL] 1 mg PO HS 01/12/19 01/12/19 History Allergies Allergy/AdvReac Type Severity Reaction Status Date / Time Penicillins Allergy Unknown Verified 01/12/19 21:18 Sulfa (Sulfonamide Allergy Unknown Verified 01/12/19 21:18 Antibiotics) Physical Exam Vitals: Vital Signs Temp Pulse Pulse Resp BP BP Pulse Ox 01/13/19 05:25 98.1 F 98 14 101/60 98 01/12/19 23:00 97.8 F 93 18 97/52 100 01/12/19 21:18 98.6 F 93 18 86/48 100 01/12/19 19:38 16 01/12/19 17:45 98.0 F 97 18 88/59 97 Intake and Output 01/12/19 01/13/19 01/13/19 22:59 06:59 14:59 Output Total 100 200 Balance -100 -200 Output: Urine 100 200 Other: Voiding Method Indwelling Catheter Weight 61.235 kg On physical examination, patient appears comfortable in no apparent distress. HEAD: Normocephalic, atraumatic. EYES: No scleral icterus. No conjunctival injection. MOUTH: No lesions, tongue midline. NECK: Trachea midline, no gross abnormalities. CHEST: Clear to auscultation with no wheezing or rhonchi appreciated. HEART: Regular rate and rhythm. ABDOMEN: Soft, thin. Bowel sounds are positive. No organomegaly. No guarding or rigidity. EXTREMITIES: No pedal edema. SKIN: No rashes, no jaundice. NEUROLOGIC: Alert and oriented x3, patient has limited mobility of upper ex tremities and is unable to move lower extremities. Results CBC & Chem 7: 01/13/19 07:09 01/13/19 07:09 Labs: Abnormal Lab Results - Last 24 Hours (Table) 01/12/19 01/12/19 01/12/19 Range/Units 18:30 18:30 18:30 WBC 11.4 H (3.8-10.6) k/uL RBC 2.55 L (3.80-5.40) m/uL Hgb 8.5 L (11.4-16.0) gm/dL Hct 26.7 L (34.0-46.0) % MCV 104.7 H (80.0-100.0) fL RDW 16.9 H (11.5-15.5) % Neutrophils # 10.2 H (1.3-7.7) k/uL Lymphocytes # 0.8 L (1.0-4.8) k/uL PT 12.1 H (9.0-12.0) sec INR 1.2 H (<1.2) Sodium 136 L (137-145) mmol/L Potassium (3.5-5.1) mmol/L Chloride (98-107) mmol/L Creatinine 0.42 L (0.52-1.04) mg/dL Glucose (74-99) mg/dL Calcium 7.7 L (8.4-10.2) mg/dL Phosphorus 2.3 L (2.5-4.5) mg/dL AST 127 H (14-36) U/L Alkaline Phosphatase 265 H (38-126) U/L Creatine Kinase 167 H (30-135) U/L Total Protein 4.8 L (6.3-8.2) g/dL Albumin 2.2 L (3.5-5.0) g/dL Urine Appearance (Clear) Urine Protein (Negative) Urine Ketones (Negative) Urine Blood (Negative) Urine Nitrite (Negative) Urine Bilirubin (Negative) Ur Leukocyte Esterase (Negative) Urine RBC (0-5) /hpf Urine WBC (0-5) /hpf Urine Bacteria (None) /hpf Urine Mucus (None) /hpf 01/12/19 01/13/19 01/13/19 Range/Units 18:30 07:09 07:09 WBC (3.8-10.6) k/uL RBC 2.34 L (3.80-5.40) m/uL Hgb 7.8 L (11.4-16.0) gm/dL Hct 24.2 L (34.0-46.0) % MCV 103.2 H (80.0-100.0) fL RDW 17.0 H (11.5-15.5) % Neutrophils # (1.3-7.7) k/uL Lymphocytes # 0.8 L (1.0-4.8) k/uL PT (9.0-12.0) sec INR (<1.2) Sodium (137-145) mmol/L Potassium 3.2 L (3.5-5.1) mmol/L Chloride 108 H (98-107) mmol/L Creatinine 0.40 L (0.52-1.04) mg/dL Glucose 62 L (74-99) mg/dL Calcium 7.3 L (8.4-10.2) mg/dL Phosphorus (2.5-4.5) mg/dL AST (14-36) U/L Alkaline Phosphatase (38-126) U/L Creatine Kinase (30-135) U/L Total Protein (6.3-8.2) g/dL Albumin (3.5-5.0) g/dL Urine Appearance Cloudy H (Clear) Urine Protein 2+ H (Negative) Urine Ketones 4+ H (Negative) Urine Blood Moderate H (Negative) Urine Nitrite Positive H (Negative) Urine Bilirubin 1+ H (Negative) Ur Leukocyte Esterase Large H (Negative) Urine RBC 148 H (0-5) /hpf Urine WBC >182 H (0-5) /hpf Urine Bacteria Occasional H (None) /hpf Urine Mucus Many H (None) /hpf Microbiology - Last 24 Hours (Table) 01/12/19 18:30 Urine Culture - Preliminary Urine,Voided Chest x-ray: report reviewed (Chest x-ray significant for small pleural effusion with no heart failure noted.) Assessment and Plan (1) Macrocytic anemia Narrative/Plan: 48-year-old female with chronic back pain who presents to the hospital due to weakness. Patient reports unintentional weight loss and was found to have a macrocytic anemia with a hemoglobin of 7.8 with an MCV of 103.2. She does report a colonoscopy within the past few months performed at [facility]. She also appears to be on medicine for abdominal pain and cramping with hyoscyamine listed as a chronic medicine. She does however deny any change in bowel habits, blood per rectum, nausea, vomiting or hematemesis. She is unsure if EGD was performed at the time of her endoscopic evaluation. At this time laboratory evaluation will be ordered for further evaluation and will try to obtain records of prior endoscopic evaluation. Current Visit: Yes Status: Acute Code(s): D53.9 - NUTRITIONAL ANEMIA, UNSPECIFIED SNOMED Code(s): 83446850 (2) Unintentional weight loss Current Visit: Yes Status: Acute Code(s): R63.4 - ABNORMAL WEIGHT LOSS SNOMED Code(s): 816718183 (3) Elevated liver enzymes Narrative/Plan: Elevated liver enzymes of unknown etiology, with the patient denying any chronic history of liver disease. Current Visit: Yes Status: Acute Code(s): R74.8 - ABNORMAL LEVELS OF OTHER SERUM ENZYMES SNOMED Code(s): 926238592 Plan: Supportive care Okay for diet Continue to monitor CBC, CMP Iron studies, vitamin B12 and folate ordered Acute viral hepatitis panel or ordered Ultrasound abdomen ordered Will try to obtain records of prior endoscopic evaluation with patient reporting colonoscopy in the past few months No plans for endoscopic evaluation at this time, we'll consider pending evaluation as described above Thank you for allowing us to participate in the care of the patient we will continue to follow
[2019-01-13] MEDS: risperiDONE 1 MG TAB PO SCH (22:05)
[2019-01-13] MEDS: PRAMIPEXOLE 0.25 MG TAB PO SCH (22:06)
[2019-01-13 23:30] LABS: Glucose,Whole Blood 77 mg/dL (75-99)
[2019-01-14] MEDS: SODIUM CHLORIDE 0.9% 1,000 ML IV SCH (01:29)
[2019-01-14] MEDS: LEVOTHYROXINE 100 MCG TAB PO SCH (06:11)
[2019-01-14 06:18] LABS: Glucose,Whole Blood 114 mg/dL (75-99)
[2019-01-14 07:34] LABS: Anisocytosis Slight; Basophils % (A) 0 %; Eosinophils % (A) 0 %; HCT 23.3 % (34.0-46.0); HGB 7.4 gm/dL (11.4-16.0); Hypochromasia Slight; Lymphocytes # (A) 0.5 k/uL (1.0-4.8); Lymphocytes % (A) 6 %; MCHC 31.8 g/dL (31.0-37.0); MCV 103.8 fL (80.0-100.0); Macrocytosis Moderate; Mean Platelet Volume 6.7; Monocytes # (A) 0.2 k/uL (0-1.0); Monocytes % (A) 2 %; Neutrophils # (A) 8.9 k/uL (1.3-7.7); Neutrophils % (A) 91 %; Platelet Count 376 k/uL (150-450); RBC 2.24 m/uL (3.80-5.40); RDW 16.7 % (11.5-15.5); WBC 9.7 k/uL (3.8-10.6)
[2019-01-14 07:42] LABS: African American GFR (CKD) >90 (>60 ml/min/1.73 sqM); Anion Gap 5 mmol/L; Blood Urea Nitrogen 9 mg/dL (7-17); Calcium 7.2 mg/dL (8.4-10.2); Carbon Dioxide 26 mmol/L (22-30); Chloride 107 mmol/L (98-107); Glucose 75 mg/dL (74-99); Magnesium 1.6 mg/dL (1.6-2.3); Non-African American GFR(CKD) >90 (>60 ml/min/1.73 sqM); Potassium 3.2 mmol/L (3.5-5.1); Sodium 138 mmol/L (137-145)
[2019-01-14 07:47] LABS: Reticulocyte % 2.2 % (0.5-2.0)
[2019-01-14] MEDS: FLUoxetine HCL 20 MG CAP PO SCH ×2 (08:19)
[2019-01-14] MEDS: lamoTRIgine 100 MG TAB PO SCH ×2 (08:19→19:58)
[2019-01-14] MEDS: POTASSIUM CHLORIDE ER 10 MEQ TAB.ER.PRT PO SCH ×2 (08:20→19:58)
[2019-01-14] MEDS: HYOSCYAMINE SULFATE 0.375 MG TAB.ER.12H PO SCH (08:20)
[2019-01-14] MEDS: THIAMINE 100 MG TAB PO SCH (08:20)
[2019-01-14] MEDS: MULTIVITAMINS, THERA 1 EACH TAB PO SCH (08:20)
[2019-01-14] MEDS: ERGOCALCIFEROL 50,000 UNIT CAP PO SCH (08:20)
[2019-01-14] MEDS: PANTOPRAZOLE 40 MG TABLET PO SCH (08:21)
[2019-01-14] MEDS: FOLIC ACID 1 MG TAB PO SCH (08:21)
--- NOTE | 2019-01-14 09:27 | US ---
EXAMINATION TYPE: US abdomen complete DATE OF EXAM: 01/14/2019 COMPARISON: Having CT today CLINICAL HISTORY: Elevated liver enzymes. Gallbladder removed and fist size pain pump located left lo wer/lateral abdomen; decreased patient mobility; malnutrition, hypocalcemia, hypoalbuminemia EXAM MEASUREMENTS: Liver Length: 20.8 cm Gallbladder Wall: surgically removed CBD: 0.7 cm Spleen: not seen due to overlying bowel gas Right Kidney: 10.0 x 6.9 x 4.8 cm Left Kidney: not seen due to overlying bowel gas and pain pump location Pancreas: wnl Liver: enlarged with mildly coarsened hepatic echotexture, small amount of ascites noted superiorly and inferiorly Gallbladder: surgically removed per patient Evidence for sonographic Ansari's sign: no CBD: wnl post cholecystectomy Spleen: not seen Right Kidney: wnl Left Kidney: not seen Upper IVC: wnl Abd Aorta: wnl;distal aorta is gassed out. IMPRESSION: 1. Trace abdominal ascites and mildly coarsened hepatic echotexture, most commonly related to early h epatic steatosis. Correlate with liver function test results. 2. Nonvisualization of the left kidney or spleen, both obscured by bowel gas.
[2019-01-14 11:28] LABS: Glucose,Whole Blood 83 mg/dL (75-99)
[2019-01-14 12:52] LABS: Hepatitis A Antibody IgM Non-Reactive (Non-Reactive); Hepatitis B Core IgM Non-Reactive (Non-Reactive); Hepatitis B Surface Antigen Non-Reactive (Non-Reactive); Hepatitis C IgG Antibody Non-Reactive (Non-Reactive)
--- NOTE | 2019-01-14 16:11 | P.CNNES ---
History of Present Illness Consult date: 01/14/19 Reason for Consult: Weakness Chief complaint: Generalized weakness History of Present Illness: HISTORY OF PRESENT ILLNESS: Thank you for allowing me to evaluate Ms. Jesusita Armijo. Ms. Armijo is a 48-year-old woman with past medical history of chronic pain, hypothyroidism, who presented to [facility] for generalized weakness. Patient is not very cooperative today. Patient states that she has always had some generalized weakness, but since about 3 days ago, her weakness has gotten worse. She does not want to be bothered and easily irritated. Patient denies any headache, difficulty with urination or defecation. PAST MEDICAL HISTORY: chronic pain, hypothyroidism, bipolar disorder PAST SURGICAL HISTORY: Morphine Pain pump placement HOME MEDICATIONS: Vitamin D, fluoxetine, hyoscyamine, pramipaxole, lamotrigine, Risperdal ALLERGIES: Penicillin, sulfa SOCIAL HISTORY: Current every day smoker REVIEW OF SYSTEMS: The 14 systems are reviewed and no additional points are identified compared to the review of systems documented history and physical PHYSICAL EXAMINATION: VITAL SIGNS: T 98.1 HR 92 RR 18 BP 125/76 O2 sat 95% on RA GEN.: cachectic, NAD, very tired but still able to answer most questions, rarely opened her eyes during eval HEENT: NCAT, sclera without icterus NECK: Supple SKIN AND EXTREMITIES: Warm to touch, no edema NEURO: MENTAL STATUS: Patient alert and oriented to self, place, time. Speech fluent, following all commands readily. CRANIAL NERVES II THROUGH XII: II: Pupils are equal and reactive to light symmetrically. III, IV, : Not cooperative to check extraocular movements V: Facial sensation intact from V1-3. VII. No clear facial asymmetry. XII: Tongue midline without fasciculation or atrophy MOTOR: Decreased bulk, decreased tone. No tremor. b/l UE at least antigravity 3/5, finger respite coordinator 2/5 bilaterally, b/l LE 3/5, wiggles toes SENSORY: Decreased to light touch, temperature, pinprick and vibration in all 4 extremities. REFLEXES: 2+ throughout. Toes are downgoing. No clonus. Sybil's is absent COORDINATION/GAIT: deferred DIAGNOSTIC TESTING: LABORATORY: WBC 9.7 hgb 7.4 platelet 376 ESR 34 CRP 79.2 reticulocyte count 2.2 sodium 138 potassium 3.2 chloride 107 bicarb 26 BUN 9 creatinine 0.34 glucose 75 TSH 3.000 IMAGING: CT head without contrast 01/12/2019: Mild atrophy. No acute intracranial abnormality. MRI c-/t-/l-spine w/ contrast 01/13/19: Mild spondylotic changes in the lower cervical spine and lower lumbar spine. Small posterior disc herniation as above in the lower cervical spine and lumbar spine. No evidence of any significant spinal stenosis. No fracture seen ASSESSMENT: 48-year-old woman with past medical history of chronic pain, hypothyroidism, who presented to [facility] for generalized weakness. On exam, patient with significant b/l UE and LE weakness along with decreased sensation to light touch, pinprick, temperature and vibration. MRI c-/t-/l-spine w/o contrast without any significant lesion that would cause such symptoms. Patient is also irritable and not wanting to fully participate in my evaluation. Patient with remarkable anemia as well, which could account for generalized weakness. RECOMMENDATIONS: 1. Will obtain peripheral neuropathy lab workup: A1C, GIL, Vitamin B12/B6/E, HIV, SPEP, UPEP, urine toxicology 2. Patient would benefit from EMG/NCS as outpatient 3. Neurology will continue to follow. Please contact with additional questions or concerns. Past Medical History Additional Past Medical History / Comment(s): chronic pain History of Any Multi-Drug Resistant Organisms: None Reported Additional Past Surgical History / Comment(s): pain pump Past Anesthesia/Blood Transfusion Reactions: No Reported Reaction Past Psychological History: No Psychological Hx Reported Smoking Status: Current every day smoker Past Alcohol Use History: None Reported Past Drug Use History: None Reported - Past Family History Father Family Medical History: Diabetes Mellitus, Renal Disease Medications and Allergies Home Medications Medication Instructions Recorded Confirmed Type FLUoxetine HCL [PROzac] 40 mg PO DAILY 01/23/15 01/12/19 History Potassium Chloride [Klor-Con 10] 10 meq PO BID 01/23/15 01/12/19 History Cholestyramine (with Sugar) 4 gm PO DAILY PRN 01/12/19 01/12/19 History [Cholestyramine Packet] Ergocalciferol (Vitamin D2) 50,000 unit PO MO 01/12/19 01/12/19 History [Drisdol] FLUoxetine HCL [PROzac] 20 mg PO DAILY 01/12/19 01/12/19 History Hyoscyamine Sulfate [Levbid] 0.375 mg PO DAILY 01/12/19 01/12/19 History Levothyroxine Sodium [Synthroid] 100 mcg PO DAILY 01/12/19 01/12/19 History Morphine 1mg/1ml Pain Pump 1 dose INTRATHECA CONTINUOUS 01/12/19 01/12/19 History Pantoprazole [Protonix] 40 mg PO DAILY 01/12/19 01/12/19 History Pramipexole [Mirapex] 0.25 mg PO HS 01/12/19 01/12/19 History Promethazine HCl 12.5 mg PO Q6H PRN 01/12/19 01/12/19 History lamoTRIgine [LaMICtal] 250 mg PO BID 01/12/19 01/12/19 History risperiDONE [RisperDAL] 1 mg PO HS 01/12/19 01/12/19 History Allergies Allergy/AdvReac Type Severity Reaction Status Date / Time Penicillins Allergy Unknown Verified 01/12/19 21:18 Sulfa (Sulfonamide Allergy Unknown Verified 01/12/19 21:18 Antibiotics) Physical Examination - Vital Signs Vital Signs: Vital Signs Temp Pulse Resp BP Pulse Ox 01/14/19 05:00 98.1 F 92 18 125/76 95 01/14/19 00:00 18 01/13/19 21:00 97.7 F 99 18 100/64 96 01/13/19 15:04 90 14 01/13/19 11:02 97.2 F L 90 14 92/54 97 Intake and Output 01/13/19 01/14/19 01/14/19 22:59 06:59 14:59 Intake Total 490 500 Output Total 1 251 Balance 489 249 Intake: Intake, IV Titration 240 480 Amount Sodium Chloride 0.9% 1, 240 480 000 ml @ 60 mls/hr IV . [id number] FORMERLY [facility], 1928–1983 Rx#:[id number] Oral 250 20 Output: Urine 250 Uretheral (Tan) 250 Stool 1 1 Other: Voiding Method Indwelling Catheter Indwelling Catheter Indwelling Catheter Results - Laboratory Findings CBC and BMP: 01/14/19 06:47 01/14/19 06:47 Abnormal Lab Findings: Abnormal Labs 01/12/19 01/12/19 01/12/19 18:30 18:30 18:30 WBC 11.4 H RBC 2.55 L Hgb 8.5 L Hct 26.7 L MCV 104.7 H RDW 16.9 H Neutrophils # 10.2 H Lymphocytes # 0.8 L ESR Retic Count PT 12.1 H INR 1.2 H Sodium 136 L Potassium Chloride Creatinine 0.42 L Glucose POC Glucose (mg/dL) Calcium 7.7 L Phosphorus 2.3 L AST 127 H Alkaline Phosphatase 265 H Creatine Kinase 167 H C-Reactive Protein Total Protein 4.8 L Albumin 2.2 L Urine Appearance Urine Protein Urine Ketones Urine Blood Urine Nitrite Urine Bilirubin Ur Leukocyte Esterase Urine RBC Urine WBC Urine Bacteria Urine Mucus 01/12/19 01/13/19 01/13/19 18:30 07:09 07:09 WBC RBC 2.34 L Hgb 7.8 L Hct 24.2 L MCV 103.2 H RDW 17.0 H Neutrophils # Lymphocytes # 0.8 L ESR Retic Count PT INR Sodium Potassium 3.2 L Chloride 108 H Creatinine 0.40 L Glucose 62 L POC Glucose (mg/dL) Calcium 7.3 L Phosphorus AST Alkaline Phosphatase Creatine Kinase C-Reactive Protein Total Protein Albumin Urine Appearance Cloudy H Urine Protein 2+ H Urine Ketones 4+ H Urine Blood Moderate H Urine Nitrite Positive H Urine Bilirubin 1+ H Ur Leukocyte Esterase Large H Urine RBC 148 H Urine WBC >182 H Urine Bacteria Occasional H Urine Mucus Many H 01/13/19 01/13/19 01/14/19 15:19 15:19 06:17 WBC RBC Hgb Hct MCV RDW Neutrophils # Lymphocytes # ESR 34 H Retic Count PT INR Sodium Potassium Chloride Creatinine Glucose POC Glucose (mg/dL) 114 H Calcium Phosphorus AST Alkaline Phosphatase Creatine Kinase C-Reactive Protein 79.2 H Total Protein Albumin Urine Appearance Urine Protein Urine Ketones Urine Blood Urine Nitrite Urine Bilirubin Ur Leukocyte Esterase Urine RBC Urine WBC Urine Bacteria Urine Mucus 01/14/19 01/14/19 01/14/19 06:47 06:47 06:47 WBC RBC 2.24 L Hgb 7.4 L Hct 23.3 L MCV 103.8 H RDW 16.7 H Neutrophils # 8.9 H Lymphocytes # 0.5 L ESR Retic Count 2.2 H PT INR Sodium Potassium 3.2 L Chloride Creatinine 0.34 L Glucose POC Glucose (mg/dL) Calcium 7.2 L Phosphorus AST Alkaline Phosphatase Creatine Kinase C-Reactive Protein Total Protein Albumin Urine Appearance Urine Protein Urine Ketones Urine Blood Urine Nitrite Urine Bilirubin Ur Leukocyte Esterase Urine RBC Urine WBC Urine Bacteria Urine Mucus
[2019-01-14 16:51] LABS: Glucose,Whole Blood 78 mg/dL (75-99)
[2019-01-14 16:53] LABS: Folate, Serum 1.4 ng/mL
[2019-01-14 17:00] LABS: % Iron Saturation 33.33 (12.00-45.00); Ferritin 977.6 ng/mL (10.0-291.0); Iron 35 ug/dL (50-170); Total Iron Binding Capacity 105 ug/dL (228-460)
--- NOTE | 2019-01-14 18:23 | PN ---
PROGRESS NOTE DATE OF DICTATION: 01/14/2019 REASON FOR CONSULTATION: Anemia. HISTORY OF PRESENT ILLNESS: The patient is a 48-year-old pleasant white female with past medical history of chronic pain syndrome with morphine pump placed a few years ago. She was admitted to the hospital because of generalized weakness of the upper and lower extremities and altered mental status. She was seen by Dr. Morales in consultation yesterday for anemia and a hemoglobin of 8.3 g/dL. Repeat hemoglobin today is 7.3 g/dL. The patient is somewhat lethargic and confused; as per the nursing staff, the pain has not been turned off. She denies any complaint. She is scheduled for a CT of the chest, abdomen and pelvis today but is unable to drink any contrast because of altered mental status. As per the nursing staff, she did not have any abdominal pain. No nausea, vomiting. No rectal bleeding or melena. PHYSICAL EXAMINATION: She appears comfortable. No apparent distress. VITAL SIGNS: Stable. Blood pressure is 133/82, pulse rate 86 per minute and afebrile. HEENT examination unremarkable. Conjunctivae pink. Sclerae anicteric. Oral cavity no lesions. NECK: No JVD or lymph node enlargement. CHEST: Clear to auscultation. HEART: Regular rate and rhythm. ABDOMEN: Soft. Bowel sounds are positive. No organomegaly. EXTREMITIES: No pedal edema. SKIN: No rashes. NEUROLOGIC: She is lethargic but answers questions appropriately. LABS: Labs from today show WBC 9.7, hemoglobin 7.4, platelets normal at 376. Basic metabolic panel is within normal limits. Iron is 35, TIBC 105, iron saturation 33%. Ferritin is 977. Vitamin B12 and serum folate are within normal limits. Hepatitis serologies for A, B and C are negative. Liver enzymes yesterday: AST 122, ALT 51, alkaline phosphatase 255 and T-bilirubin 1.2. IMPRESSION: 1. Macrocytic anemia not consistent with iron deficiency anemia. Apparently the patient did have an EGD and colonoscopy at [facility] a few months ago, results of which are not available at the time of this dictation. 2. Progressive weight loss. She is scheduled for a CT of the chest, abdomen and pelvis today. 3. Altered mental status, probably related to morphine pain pump. Neurology has been consulted to evaluate this further. RECOMMENDATIONS: 1. Await records from [facility] regarding previous endoscopic workup. 2. Await results of CT of the abdomen and pelvis that is scheduled for later today. 3. I agree with neurology consultation to turn off the pain pump and see if this will improve her mental status. 4. Repeat labs in the morning. Will follow with you closely during her hospital stay. Thank you for this consultation. RAULITO / JAYCOBN: [id number] /
[2019-01-14] MEDS: PRAMIPEXOLE 0.25 MG TAB PO SCH (19:58)
[2019-01-14] MEDS: ALPRAZolam 0.25 MG TAB PO PRN (19:58)
[2019-01-14] MEDS: risperiDONE 1 MG TAB PO SCH (19:58)
--- NOTE | 2019-01-14 20:45 | CT ---
EXAMINATION TYPE: CT ChestAbdPelvis w con DATE OF EXAM: 01/14/2019 COMPARISON: NONE HISTORY: weight loss CT DLP: 879.6 mGycm. Automated Exposure Control for Dose Reduction was Utilized. CONTRAST: CT scan of the thorax, abdomen and pelvis is performed with IV Contrast, patient injected with 100 mL of Isovue 300. FINDINGS: The patient's arms creates spray artifact limiting evaluation the abdomen. LUNGS: Moderate left and small right pleural effusions with associated compressive atelectasis. Multi focal left-sided airspace disease. Consider pneumonia. Dependent subsegmental atelectasis is also see n as groundglass opacities. MEDIASTINUM: There are no greater than 1 cm hilar or mediastinal lymph nodes. No pericardial effusi on is seen. LIVER/GB: Severe hepatic steatosis. PANCREAS: Pancreas is limited evaluation difficult to visualize. Pancreatic atrophy is seen. SPLEEN: No splenomegaly ADRENALS: No significant abnormality is seen. KIDNEYS: Kidneys enhance symmetrically without hydronephrosis. Tan catheter is present in the urina ry bladder. BOWEL: Partial gastrectomy change. Moderate degree colonic fecal stasis and fecal incontinence. LYMPH NODES: No greater than 1cm abdominal or pelvic lymph nodes are appreciated. OSSEOUS STRUCTURES: Mild degenerative changes of the spine. OTHER: There is diffuse anasarca. Diffuse mesenteric edema is also seen most confluent in the presacr al space with small amount of abdominal and pelvic ascites. IMPRESSION: 1. Fluid overload is seen with anasarca, mesenteric congestion, trace ascites, and pleural effusions. Ascites and mesenteric edema slightly limit the evaluation. 2. Findings concerning for multifocal left-sided pneumonia. 3. Severe hepatic steatosis.
--- NOTE | 2019-01-14 21:08 | P.PN ---
Subjective Progress Note Date: 01/14/19 This is a 48 yo F with history of chronic pain who has an intrathecal morphine pain pump who is admitted for symptomatic weakness, anemia, anasarca after an 80 lb unintentional weight loss over the past few months. She was evaluated by GI and aside from hepatic steatosis, remainder of GI workup has been negative. She had an MRI cervical/thoracic/lumbar spine and a CT chest/abd/pelvis with contrast which were largely unremarkable. Today she is drowsy and per nursing staff intermittently irritable. She has no specific complaint and would like to be discharged. Objective - Vital Signs Vital signs: Vital Signs Temp 98.8 F 01/14/19 20:51 Pulse 94 01/14/19 20:51 Resp 20 01/14/19 20:51 BP 108/68 01/14/19 20:51 Pulse Ox 95 01/14/19 20:51 Intake & Output 01/14/19 01/14/19 01/15/19 06:59 18:59 06:59 Intake Total 980 270 Output Total 251 600 Balance 729 -330 Intake: Intake, IV Titration 720 50 Amount Sodium Chloride 0.9% 1, 720 000 ml @ 60 mls/hr IV . [id number] LATHA Rx#:[id number] cefTRIAXone 1 gm In 50 Sodium Chloride 0.9% 50 ml @ 100 mls/hr IVPB Q24HR LATHA Rx#:[id number] Oral 260 220 Output: Urine 250 600 Uretheral (Tan) 250 600 Stool 1 Other: Voiding Method Indwelling Catheter Indwelling Catheter - Exam Gen: frail, cachexic, drowsy CV: RRR, no murmur Lungs: clear throughout Abd: soft, nontender Ext: no edema Neuro: bilateral weakness, sensation intact, reflexes 1+, psychomotor retardation - Labs CBC & Chem 7: 01/14/19 06:47 01/14/19 06:47 Labs: Abnormal Lab Results - Last 24 Hours (Table) 01/14/19 01/14/19 01/14/19 Range/Units 06:17 06:47 06:47 RBC 2.24 L (3.80-5.40) m/uL Hgb 7.4 L (11.4-16.0) gm/dL Hct 23.3 L (34.0-46.0) % MCV 103.8 H (80.0-100.0) fL RDW 16.7 H (11.5-15.5) % Neutrophils # 8.9 H (1.3-7.7) k/uL Lymphocytes # 0.5 L (1.0-4.8) k/uL Retic Count (0.5-2.0) % Potassium (3.5-5.1) mmol/L Creatinine (0.52-1.04) mg/dL POC Glucose (mg/dL) 114 H (75-99) mg/dL Calcium (8.4-10.2) mg/dL Iron (50-170) ug/dL TIBC (228-460) ug/dL Transferrin 42.7 L (204.0-354.0) mg/dL Ferritin (10.0-291.0) ng/mL Vitamin B12 (200.0-944.0) pg/mL 01/14/19 01/14/19 Range/Units 06:47 06:47 RBC (3.80-5.40) m/uL Hgb (11.4-16.0) gm/dL Hct (34.0-46.0) % MCV (80.0-100.0) fL RDW (11.5-15.5) % Neutrophils # (1.3-7.7) k/uL Lymphocytes # (1.0-4.8) k/uL Retic Count 2.2 H (0.5-2.0) % Potassium 3.2 L (3.5-5.1) mmol/L Creatinine 0.34 L (0.52-1.04) mg/dL POC Glucose (mg/dL) (75-99) mg/dL Calcium 7.2 L (8.4-10.2) mg/dL Iron 35 L (50-170) ug/dL TIBC 105 L (228-460) ug/dL Transferrin (204.0-354.0) mg/dL Ferritin 977.6 H (10.0-291.0) ng/mL Vitamin B12 1613.0 H (200.0-944.0) pg/mL Microbiology - Last 24 Hours (Table) 01/13/19 15:15 Urine Culture - Preliminary Urine,Catheterized Gram Neg Bacilli 01/12/19 18:30 Urine Culture - Final Urine,Voided Escherichia coli 01/13/19 14:26 Blood Culture - Preliminary Blood No Growth after 24 hours 01/13/19 14:20 Blood Culture - Preliminary Blood No Growth after 24 hours Assessment and Plan (1) Protein-calorie malnutrition, severe Current Visit: Yes Status: Acute Code(s): E43 - UNSPECIFIED SEVERE PROTEIN- CALORIE MALNUTRITION SNOMED Code(s): 198510783 (2) Cachexia Current Visit: Yes Status: Acute Code(s): R64 - CACHEXIA SNOMED Code(s): 714005321 (3) Chronic pain Current Visit: Yes Status: Acute Code(s): G89.29 - OTHER CHRONIC PAIN SNOMED Code(s): 52118546 (4) Presence of intrathecal pump Current Visit: Yes Status: Acute Code(s): Z97.8 - PRESENCE OF OTHER SPECIF IED DEVICES SNOMED Code(s): 382945753 (5) Elevated liver enzymes Current Visit: Yes Status: Acute Code(s): R74.8 - ABNORMAL LEVELS OF OTHER SERUM ENZYMES SNOMED Code(s): 826061603 (6) Hypoalbuminemia Current Visit: Yes Status: Acute Code(s): E88.09 - OTH DISORDERS OF PLASMA- PROTEIN METABOLISM, NEC SNOMED Code(s): 366823956 (7) Macrocytic anemia Current Visit: Yes Status: Acute Code(s): D53.9 - NUTRITIONAL ANEMIA, UNSPECIFIED SNOMED Code(s): 61096132 (8) Malnutrition Current Visit: Yes Status: Acute Code(s): E46 - UNSPECIFIED PROTEIN-CALORIE MALNUTRITION SNOMED Code(s): 25687841 (9) Unintentional weight loss Current Visit: Yes Status: Acute Code(s): R63.4 - ABNORMAL WEIGHT LOSS SNOMED Code(s): 880112034 (10) Weakness Current Visit: Yes Status: Acute Code(s): R53.1 - WEAKNESS SNOMED Code(s): 42570765 Plan: 1. Weakness, cachexia, weight loss, hypoalbuminemia. CT chest/abd/pelvis and MRI c/t/l spine non contributory. GI and neurology consults. Consider anorexia in setting of iatrogenic morphine. Pain management consulted and plan to decrease pump settings from 500 to 50 ug per day. 2. Bipolar disorder. Continue lamictal and risperdal
[2019-01-15] MEDS: SODIUM CHLORIDE 0.9% 1,000 ML IV SCH ×3 (00:38→18:50)
[2019-01-15 01:14] LABS: HIV 1 AB Non-Reactive (Non-Reactive); HIV 2 AB Non-Reactive (Non-Reactive); HIV AB P24 Non-Reactive (Non-Reactive); HIV P24 AG Non-Reactive (Non-Reactive)
[2019-01-15 01:41] LABS: Hemoglobin A1C 3.9 % (4.0-6.0)
[2019-01-15 03:14] LABS: Protein, Total 4.1 g/dL (6.2-8.2)
[2019-01-15] MEDS: LEVOTHYROXINE 100 MCG TAB PO SCH (05:23)
[2019-01-15 06:01] LABS: Glucose,Whole Blood 83 mg/dL (75-99)
[2019-01-15 08:40] LABS: Anisocytosis Slight; Basophils % (A) 0 %; Eosinophils % (A) 0 %; HCT 25.9 % (34.0-46.0); HGB 8.4 gm/dL (11.4-16.0); Hypochromasia Slight; Lymphocytes # (A) 0.5 k/uL (1.0-4.8); Lymphocytes % (A) 5 %; MCH 33.7 pg (25.0-35.0); MCHC 32.4 g/dL (31.0-37.0); Macrocytosis Moderate; Mean Platelet Volume 6.2; Monocytes # (A) 0.2 k/uL (0-1.0); Monocytes % (A) 2 %; Neutrophils # (A) 9.2 k/uL (1.3-7.7); Neutrophils % (A) 93 %; Platelet Count 415 k/uL (150-450); RBC 2.49 m/uL (3.80-5.40); RDW 16.9 % (11.5-15.5); WBC 9.9 k/uL (3.8-10.6)
[2019-01-15 09:02] LABS: ALT 46 U/L (9-52); AST 106 U/L (14-36); African American GFR (CKD) >90 (>60 ml/min/1.73 sqM); Albumin 2.1 g/dL (3.5-5.0); Alkaline Phosphatase 243 U/L (38-126); Anion Gap 12 mmol/L; Blood Urea Nitrogen 7 mg/dL (7-17); Calcium 7.5 mg/dL (8.4-10.2); Carbon Dioxide 19 mmol/L (22-30); Chloride 109 mmol/L (98-107); Glucose 63 mg/dL (74-99); Non-African American GFR(CKD) >90 (>60 ml/min/1.73 sqM); Potassium 3.2 mmol/L (3.5-5.1); Sodium 140 mmol/L (137-145); Total Bilirubin 0.8 mg/dL (0.2-1.3); Total Protein 4.7 g/dL (6.3-8.2)
[2019-01-15] MEDS: lamoTRIgine 100 MG TAB PO SCH ×2 (10:10→22:01)
[2019-01-15] MEDS: HYOSCYAMINE SULFATE 0.375 MG TAB.ER.12H PO SCH (10:10)
[2019-01-15] MEDS: FLUoxetine HCL 20 MG CAP PO SCH ×2 (10:10)
[2019-01-15] MEDS: POTASSIUM CHLORIDE ER 10 MEQ TAB.ER.PRT PO SCH ×2 (10:12→22:01)
[2019-01-15] MEDS: PANTOPRAZOLE 40 MG TABLET PO SCH (10:12)
--- NOTE | 2019-01-15 11:37 | CDI ---
Documentation Clarification Form Date: 01/15/2019 11:12:17 AM From: Jacy Benjamin RN, CCDS Admit Date: 01/13/2019 1:15:00 PM Patient Name: Jesusita Armijo Visit Number: [id number] Discharge Date: ATTENTION: The Clinical Documentation Specialists (CDI) and [facility] Coding Staff appreciate your assistance in clarifying documentation. Please respond to the clarification below the line at the bottom and electronically sign. The CDI & [facility] Coding staff will review the response and follow-up if needed. Please note: Queries are made part of the Legal Health Record. If you have any questions, please contact the author of this message via ITS. Dr. Unruly Looney Altered Mental Status was documented in the ER evaluation, History and Physical and consult and further clarification is needed. History/Risk Factors: Chronic pain syndrome on pain pump, UTI Clinical Indicators: 48-year-old female with present with weakness in upper and lower extremities. She has lower extremity swelling. She is awake, alert, drowsy. She has had progressive weight loss over 2 months estimated to be 80 pounds. Vital signs on admission: 88/59 97 18 98.0, 86/48 93 18 98.6 Labs: wbc 11.4, hgb 8.5, 7.4, hct 26.7, 23.3; UA: Large Leukocyte Esterase, Nitrite Positive, Urine Culture: Final Positive for Escherichia coli Chest x-ray: fluid overload with anasarca, mesenteric congestion trace ascites and pleural effusions. GI () Patient somewhat lethargic and confused altered mental status, probably related to morphine pain pump Treatment: Neurological assessment per protocol Rocephin IV Monitor CBC, Lytes, IV Fluids In your professional opinion, please clarify the etiology of the Altered Mental Status, if known. Metabolic Encephalopathy (specify cause) Toxic Encephalopathy (specify cause) Other condition (please specify) Unable to determine (Last Revision: May 2017) Toxic encephalopathy secondary to prescribed opiates MTDD
--- NOTE | 2019-01-15 12:07 | P.PN ---
Subjective Progress Note Date: 01/15/19 This is a 48 yo F with history of chronic pain who has an intrathecal morphine pain pump who is admitted for symptomatic weakness, anemia, anasarca after an 80 lb unintentional weight loss over the past few months. She was evaluated by GI and aside from hepatic steatosis, remainder of GI workup has been negative. She had an MRI cervical/thoracic/lumbar spine and a CT chest/abd/pelvis with contrast which were largely unremarkable. Today she is drowsy and per nursing staff intermittently irritable. She has no specific complaint and would like to be discharged. 01/15/2019 evaluated by pain management yesterday, pain pump reported as being turned down to lowest setting. Complains of chronic back pain. Currently in opioid withdrawal, mumbling, slurring of speech, defensive, incontinent of bowel movement. Maintained on IV fluids. Potassium 3.2. Evaluated by GI and neurology with recommendations noted and appreciated. Objective - Vital Signs Vital signs: Vital Signs Temp 97.4 F L 01/15/19 04:22 Pulse 88 01/15/19 04:22 Resp 18 01/15/19 04:22 BP 110/77 01/15/19 04:22 Pulse Ox 96 01/15/19 04:22 Intake & Output 01/14/19 01/15/19 01/15/19 18:59 06:59 18:59 Intake Total 270 1080 Output Total 600 1401 Balance -330 -321 Intake: Intake, IV Titration 50 720 Amount Sodium Chloride 0.9% 1, 720 000 ml @ 60 mls/hr IV . [id number] LATHA Rx#:[id number] cefTRIAXone 1 gm In 50 Sodium Chloride 0.9% 50 ml @ 100 mls/hr IVPB Q24HR LATHA Rx#:[id number] Oral 220 360 Output: Urine 600 1400 Uretheral (Tan) 600 600 Stool 1 Other: Voiding Method Indwelling Catheter Indwelling Catheter # Bowel Movements 0 - Exam Gen: frail, cachexic, drowsy, mumbling, irritable CV: RRR, no murmur Lungs: clear throughout Abd: soft, nontender Ext: no edema Neuro: bilateral weakness, sensation intact, reflexes 1+, psychomotor retardation. - Labs CBC & Chem 7: 01/15/19 07:44 01/15/19 07:44 Labs: Abnormal Lab Results - Last 24 Hours (Table) 01/14/19 01/14/19 01/14/19 Range/Units 06:47 06:47 16:59 Hemoglobin A1c 3.9 L (4.0-6.0) % Iron 35 L (50-170) ug/dL TIBC 105 L (228-460) ug/dL Transferrin 42.7 L (204.0-354.0) mg/dL Ferritin 977.6 H (10.0-291.0) ng/mL Total Protein (PEP) (6.2-8.2) g/dL Vitamin B12 1613.0 H (200.0-944.0) pg/mL 01/14/19 Range/Units 16:59 Hemoglobin A1c (4.0-6.0) % Iron (50-170) ug/dL TIBC (228-460) ug/dL Transferrin (204.0-354.0) mg/dL Ferritin (10.0-291.0) ng/mL Total Protein (PEP) 4.1 L (6.2-8.2) g/dL Vitamin B12 (200.0-944.0) pg/mL Microbiology - Last 24 Hours (Table) 01/13/19 15:15 Urine Culture - Preliminary Urine,Catheterized Gram Neg Bacilli 01/12/19 18:30 Urine Culture - Final Urine,Voided Escherichia coli 01/13/19 14:26 Blood Culture - Preliminary Blood No Growth after 24 hours 01/13/19 14:20 Blood Culture - Preliminary Blood No Growth after 24 hours Assessment and Plan Assessment: 1) Protein-calorie malnutrition, severe Current Visit: Yes Status: Acute Code(s): E43 - UNSPECIFIED SEVERE PROTEIN- CALORIE MALNUTRITION SNOMED Code(s): 734953370 (2) Cachexia Current Visit: Yes Status: Acute Code(s): R64 - CACHEXIA SNOMED Code(s): 292441699 (3) Chronic pain Current Visit: Yes Status: Acute Code(s): G89.29 - OTHER CHRONIC PAIN SNOMED Code(s): 16749073 (4) Presence of intrathecal pump Current Visit: Yes Status: Acute Code(s): Z97.8 - PRESENCE OF OTHER SPECIFIED DEVICES SNOMED Code(s): 318914393 (5) Elevated liver enzymes Current Visit: Yes Status: Acute Code(s): R74.8 - ABNORMAL LEVELS OF OTHER SERUM ENZYMES SNOMED Code(s): 105065592 (6) Hypoalbuminemia Current Visit: Yes Status: Acute Code(s): E88.09 - OTH DISORDERS OF PLASMA- PROTEIN METABOLISM, NEC SNOMED Code(s): 369297393 (7) Macrocytic anemia Current Visit: Yes Status: Acute Code(s): D53.9 - NUTRITIONAL ANEMIA, UNSPECIFIED SNOMED Code(s): 71438825 (8) Malnutrition Current Visit: Yes Status: Acute Code(s): E46 - UNSPECIFIED PROTEIN-CALORIE MALNUTRITION SNOMED Code(s): 39744813 (9) Unintentional weight loss Current Visit: Yes Status: Acute Code(s): R63.4 - ABNORMAL WEIGHT LOSS SNOMED Code(s): 067647436 (10) Weakness Current Visit: Yes Status: Acute Code(s): R53.1 - WEAKNESS SNOMED Code(s): 14261116 (11) opiate withdrawal (12) acute metabolic, toxic encephalopathy secondary to pain pump (13) hypokalemia Plan: Continue on current medication regime ,monitoring and symptomatic treatment. Maintain IV fluid hydration. Electrolyte replacement as per replacement protocols. PT/OT-currently declining.Follow closely with multiple consults. Prognosis guarded given multiple complex medical issues. The impression and plan of care has been dictated as directed. : I performed a history and examination of this patient, discussed the same with the dictator. I agree with the dictator's note ,documented as a scribe. Any additional findings or plans will be noted.
[2019-01-15 12:35] LABS: Glucose,Whole Blood 84 mg/dL (75-99)
[2019-01-15] MEDS: FOLIC ACID 1 MG TAB PO SCH (13:15)
[2019-01-15] MEDS: MULTIVITAMINS, THERA 1 EACH TAB PO SCH (13:15)
[2019-01-15] MEDS: THIAMINE 100 MG TAB PO SCH (13:15)
--- NOTE | 2019-01-15 13:43 | P.PN ---
Progress Note - Text Progress Note Date: 01/15/19 SUBJECTIVE/INTERVAL EVENTS: No acute overnight events. is at bedside. Patient has lost ~80 pounds in about 3 months unintentionally. It appears that patient started having weakness around the time she started losing weight, and since about 3 weeks ago, she couldn't really get around on her own. Patient today without her dentures, so her speech is quite slurred but still able to answer questions appropriately. PHYSICAL EXAMINATION: VITAL SIGNS: T 97.4 HR 88 RR 18 BP 110/77 O2 sat 96% on RA GEN.: cachectic, NAD, very tired but still able to answer most questions, rarely opened her eyes during eval HEENT: NCAT, sclera without icterus NECK: Supple SKIN AND EXTREMITIES: Warm to touch, no edema NEURO: MENTAL STATUS: Patient alert and oriented to self, place, time. Speech fluent, following all commands readily. CRANIAL NERVES II THROUGH XII: II: Pupils are equal and reactive to light symmetrically. III, IV, : Not cooperative to check extraocular movements V: Facial sensation intact from V1-3. VII. No clear facial asymmetry. XII: Tongue midline without fasciculation or atrophy MOTOR: Decreased bulk, decreased tone. No tremor. 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 Toes are downgoing. No clonus. Sybil's is absent COORDINATION/GAIT: deferred DIAGNOSTIC TESTING: LABORATORY: WBC 9.7 hgb 7.4 platelet 376 ESR 34 CRP 79.2 reticulocyte count 2.2 sodium 138 potassium 3.2 chloride 107 bicarb 26 BUN 9 creatinine 0.34 glucose 75 TSH 3.000 A1C 3.9, GIL neg, Vitamin B12 1613 VItamin B6 pending, Vitamin E pending, HIV NR, SPEP 4.1 (low), urine toxicology yet to be obtained IMAGING: CT head without contrast 01/12/2019: Mild atrophy. No acute intracranial abnormality. MRI c-/t-/l-spine w/ contrast 01/13/19: Mild spondylotic changes in the lower cervical spine and lower lumbar spine. Small posterior disc herniation as above in the lower cervical spine and lumbar spine. No evidence of any significant spinal stenosis. No fracture seen ASSESSMENT: 48-year-old woman with past medical history of chronic pain, hypothyroidism, who presented to [facility] for generalized weakness. On exam, patient with significant b/l UE and LE weakness along with decreased sensation to light touch, pinprick, temperature and vibration. MRI c-/t-/l-spine w/o contrast without any significant lesion that would cause such symptoms. Patient is also irritable and not wanting to fully participate in my evaluation. Patient with remarkable anemia as well, which could account for generalized weakness. RECOMMENDATIONS: 1. Will obtain peripheral neuropathy lab workup: VItamin B6 pending, Vitamin E pending, urine toxicology yet to be obtained 2. Will obtain MRI brain w/ and w/o contrast. CT chest/abdomen/pelvis with no evidence of malignancy (only showing severe hepatic steatosis), but concerning for recent 80-pound weight loss. 2. Patient would benefit from EMG/NCS as outpatient 3. Neurology will continue to follow. Please contact with additional questions or concerns.
[2019-01-15 14:11] LABS: Albumin 1.72 g/dL (3.80-4.90); Gamma Globulin 0.71 g/dL (0.70-1.50)
[2019-01-15] MEDS: POTASSIUM CHLORIDE 10 MEQ in WATER FOR INJECTION 1 100ML.BAG IVPB SCH ×4 (15:16→18:49)
--- NOTE | 2019-01-15 18:59 | PN ---
PROGRESS NOTE DATE OF DICTATION: 01/15/2019 The patient is a 48-year-old pleasant white female who was admitted to the hospital with altered mental status, progressive weight loss of 80 pounds associated with weakness, generalized anasarca for the last few months' duration. She underwent pain pump implantation for chronic back pain. Because of the altered mental status, Neurology was consulted. The dose of the morphine was decreased and she is much more alert today. The patient has been complaining of dysphagia to solids for the last few months. As part of evaluation of weight loss, she had a colonoscopy done by Dr. Whitaker in March of 2018 at [facility] that showed diverticulosis. Yesterday she did have a CT of the chest, abdomen and pelvis which was unremarkable. She denies any abdominal pain. She complains of dysphagia, occasional constipation. PHYSICAL EXAMINATION: She appears comfortable. No apparent distress. VITAL SIGNS: Stable. Blood pressure is 106/86, pulse rate 95, temperature 97.4. HEENT examination unremarkable. Conjunctivae pink. Sclerae anicteric. Oral cavity no lesions. NECK: No JVD or lymph node enlargement. CHEST: Clear to auscultation. HEART: Regular rate and rhythm. ABDOMEN: Soft. It was slightly distended but it was benign. Bowel sounds are positive. No organomegaly. EXTREMITIES: No pedal edema. SKIN: No rashes. NEUROLOGIC: She is alert and oriented x3. No focal deficits. LABS: Labs from today show WBC 9.9, hemoglobin 8.4, platelets 418. BUN and creatinine are within normal limits. Liver enzymes show an AST of 106, ALT 46, alkaline phosphatase 243. Ammonia less than 9. Hepatitis serologies for A, B and C were negative. Antinuclear antibodies negative. Serum protein electrophoresis was negative. Iron saturation 33%, ferritin 977. IMPRESSION: 1. Progressive weight loss of 80 pounds in the last 6 months' duration with clinical features of malnutrition. CT of the chest, abdomen and pelvis showed changes of generalized anasarca with some trace ascites and pleural effusion, possible multifocal left-sided pneumonia and severe hepatic steatosis. 2. Dysphagia to solids for the last several months' duration. No history of endoscopy in the past. 3. Chronic back pain, on morphine pain pump. Neurology following the patient closely. 4. Elevated liver function tests which are most consistent with alcoholic-induced liver disease. As per the family, she quit drinking about a year ago. Prior to that she was a moderate to heavy drinker. CT scan did show evidence of steatosis, which could be explained on the basis of chronic alcoholic liver disease. Hepatitis serologies for A, B and C were negative. Autoimmune workup was negative. 5. Elevated ferritin, probably explained on the basis of chronic liver disease. RECOMMENDATIONS: 1. We will proceed with an EGD tomorrow to evaluate dysphagia. 2. Continue with Protonix 40 mg daily. 3. Encourage to increase p.o. intake. 4. Repeat LFTs in the morning. We will follow with you closely during her hospital stay. Thank you for this consultation. MMRADHAL / IJN: [id number] /
[2019-01-15] MEDS: risperiDONE 1 MG TAB PO SCH (22:01)
[2019-01-15] MEDS: PRAMIPEXOLE 0.25 MG TAB PO SCH (22:01)
[2019-01-15 23:55] LABS: Glucose,Whole Blood 88 mg/dL (75-99)
[2019-01-16] MEDS: ALPRAZolam 0.25 MG TAB PO PRN (00:49)
[2019-01-16] MEDS: POTASSIUM CHLORIDE 10 MEQ in WATER FOR INJECTION 1 100ML.BAG IVPB SCH ×4 (03:33→06:58)
[2019-01-16] MEDS: LEVOTHYROXINE 100 MCG TAB PO SCH (05:24)
[2019-01-16 05:34] LABS: Glucose,Whole Blood 80 mg/dL (75-99)
[2019-01-16 06:51] LABS: Glucose,Whole Blood 76 mg/dL (75-99)
--- NOTE | 2019-01-16 09:41 | P.PN ---
Progress Note - Text Progress Note Date: 01/16/19 SUBJECTIVE/INTERVAL EVENTS: No acute overnight events. Patient pending EGD today. Patient is more awake and alert today. Patient continues to have significant weakness along with decreased sensation in b/l LE. PHYSICAL EXAMINATION: VITAL SIGNS: T 98.1 HR 90 RR 17 BP 110/67 O2 sat 92% on RA GEN.: cachectic, NAD, very tired but still able to answer most questions, rarely opened her eyes during eval HEENT: NCAT, sclera without icterus NECK: Supple SKIN AND EXTREMITIES: Warm to touch, no edema NEURO: MENTAL STATUS: Patient alert and oriented to self, place, time. Speech fluent, following all commands readily. CRANIAL NERVES II THROUGH XII: II: Pupils are equal and reactive to light symmetrically. III, IV, : Not cooperative to check extraocular movements V: Facial sensation intact from V1-3. VII. No clear facial asymmetry. XII: Tongue m idline without fasciculation or atrophy MOTOR: Decreased bulk, decreased tone. No tremor. 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 Toes are downgoing. No clonus. Sybil's is absent COORDINATION/GAIT: deferred DIAGNOSTIC TESTING: LABORATORY: WBC 9.7 hgb 7.4 platelet 376 ESR 34 CRP 79.2 reticulocyte count 2.2 sodium 138 potassium 3.2 chloride 107 bicarb 26 BUN 9 creatinine 0.34 glucose 75 TSH 3.000 A1C 3.9, GIL neg, Vitamin B12 1613 VItamin B6 pending, Vitamin E pending, HIV NR, SPEP 4.1 (low), ammonia <9, urine toxicology yet to be obtained IMAGING: CT head without contrast 01/12/2019: Mild atrophy. No acute intracranial abnormality. MRI c-/t-/l-spine w/ contrast 01/13/19: Mild spondylotic changes in the lower cervical spine and lower lumbar spine. Small posterior disc herniation as above in the lower cervical spine and lumbar spine. No evidence of any significant spinal stenosis. No fracture seen ASSESSMENT: 48-year-old woman with past medical history of chronic pain, hypothyroidism, who presented to [facility] for generalized weakness. On exam, patient with significant b/l UE and LE weakness along with decreased sensation to light touch, pinprick, temperature and vibration. MRI c-/t-/l-spine w/o contrast without any significant lesion that would cause such symptoms. Patient is also irritable and not wanting to fully participate in my evaluation. Patient with remarkable anemia as well, which could account for generalized weakness. RECOMMENDATIONS: 1. f/u remaining peripheral neuropathy lab workup: VItamin B6 pending, Vitamin E pending, urine toxicology yet to be obtained 2. Will obtain MRI brain w/ and w/o contrast. CT chest/abdomen/pelvis with no evidence of malignancy (only showing severe hepatic steatosis), but concerning for recent 80-pound weight loss. 3. Will get IR-guided LP as CIDP is also a possible diagnosis.0 4. Patient would benefit from EMG/NCS as outpatient 5. Neurology will continue to follow. Please contact with additional questions or concerns.
[2019-01-16 09:57] LABS: Anisocytosis Slight; Basophils % (A) 0 %; Eosinophils % (A) 0 %; HCT 23.1 % (34.0-46.0); HGB 7.2 gm/dL (11.4-16.0); Hypochromasia Slight; Lymphocytes # (A) 0.7 k/uL (1.0-4.8); Lymphocytes % (A) 7 %; MCH 32.2 pg (25.0-35.0); MCHC 30.9 g/dL (31.0-37.0); MCV 104.1 fL (80.0-100.0); Macrocytosis Moderate; Mean Platelet Volume 7.8; Monocytes # (A) 0.2 k/uL (0-1.0); Monocytes % (A) 2 %; Neutrophils # (A) 9.6 k/uL (1.3-7.7); Neutrophils % (A) 90 %; Platelet Count 385 k/uL (150-450); RBC 2.22 m/uL (3.80-5.40); RDW 16.8 % (11.5-15.5); WBC 10.7 k/uL (3.8-10.6)
[2019-01-16 10:08] LABS: ALT 46 U/L (9-52); AST 89 U/L (14-36); African American GFR (CKD) >90 (>60 ml/min/1.73 sqM); Albumin 1.9 g/dL (3.5-5.0); Alkaline Phosphatase 214 U/L (38-126); Anion Gap 10 mmol/L; Blood Urea Nitrogen 8 mg/dL (7-17); Calcium 7.4 mg/dL (8.4-10.2); Carbon Dioxide 18 mmol/L (22-30); Chloride 111 mmol/L (98-107); Glucose 55 mg/dL (74-99); Non-African American GFR(CKD) >90 (>60 ml/min/1.73 sqM); Potassium 3.9 mmol/L (3.5-5.1); Sodium 139 mmol/L (137-145); Total Bilirubin 0.7 mg/dL (0.2-1.3); Total Protein 4.4 g/dL (6.3-8.2)
[2019-01-16] MEDS: lamoTRIgine 100 MG TAB PO SCH ×2 (10:55→22:03)
[2019-01-16 11:25] LABS: Glucose,Whole Blood 71 mg/dL (75-99)
--- NOTE | 2019-01-16 11:39 | MR ---
EXAMINATION TYPE: MR brain wo/w con DATE OF EXAM: 01/16/2019 COMPARISON: CT brain dated 01/12/2019 HISTORY: severe generalized weakness, recent 80 lb loss TECHNIQUE: Multiplanar, multisequence images of the brain and brainstem is performed without and with IV contras t, utilizing 6 mL intravenous Gadavist . FINDINGS: Diffusion weighted images demonstrate no evidence of a recent infarct or other diffusion ab normality. There is no extra-axial fluid collection or significant white matter signal abnormality. The ventricular system and cisternal spaces are normal in size and appearance. The brain volume is consistent with mild degenerative change. Midline structures demonstrate normal morphology. The craniocervical junction appears within normal limits. Post contrast images demonstrate no abnormal enhancement. The dural venous sinuses appear pa tent. The visualized sinuses are clear and the globes are intact. There is nonspecific areas of abnormal signal involving the posterior cerebellar peduncles. Areas of abnormal signal involving the neris and throughout the periventricular white matter are nonspecific. R eport called to the patient's nurse. IMPRESSION: 1. Limited exam demonstrates nonspecific white matter changes as discussed above with small faint are as of abnormal signal within the neris and posterior cerebellar peduncles. Finding is nonspecific coul d be seen with the hepatic encephalopathy, remote microvascular ischemia, demyelinating process, vasc ulitis or Lyme's disease. If there is concern for infectious etiology other less likely consideration s would be PML or ADEM.
--- NOTE | 2019-01-16 13:36 | P.PN ---
Subjective Progress Note Date: 01/16/19 This is a 48 yo F with history of chronic pain who has an intrathecal morphine pain pump who is admitted for symptomatic weakness, anemia, anasarca after an 80 lb unintentional weight loss over the past few months. She was evaluated by GI and aside from hepatic steatosis, remainder of GI workup has been negative. She had an MRI cervical/thoracic/lumbar spine and a CT chest/abd/pelvis with contrast which were largely unremarkable. Today she is drowsy and per nursing staff intermittently irritable. She has no specific complaint and would like to be discharged. 01/15/2019 evaluated by pain management yesterday, pain pump reported as being turned down to lowest setting. Complains of chronic back pain. Currently in opioid withdrawal, mumbling, slurring of speech, defensive, incontinent of bowel movement. Maintained on IV fluids. Potassium 3.2. Evaluated by GI and neurology with recommendations noted and appreciated.Repeat urine culture growing gram-negative bacilli, only 10-49,000 CFU/mL, probably colonization. 01/16/2019 LFTs improving. Albumin 1.9.more coherent today, cooperative, att empting to work with PT. Continues in opioid withdrawal, improved from yesterday. Reports chronic back pain currently at a 7-8. Intrathecal pain pump at the lowest dose setting continues. Reports she did not sleep well, secondary to her nerves, sweaty. Denies nausea vomiting or diarrhea. Hemoglobin 7.2. No signs or symptoms of active bleeding reported. NPO, EGD pending. Denies lightheadedness, dizziness or focal deficits. Denies chest pain, palpitations or shortness of breath. Repeat urine cultures reporting E. coli with colonic consults 10-49,000. Maintained on Rocephin Objective - Vital Signs Vital signs: Vital Signs Temp 98.1 F 01/16/19 08:56 Pulse 90 01/16/19 08:56 Resp 17 01/16/19 08:56 BP 110/67 01/16/19 08:56 Pulse Ox 92 L 01/16/19 08:56 Intake & Output 01/15/19 01/16/19 01/16/19 18:59 06:59 18:59 Intake Total 480 900 Output Total 1 550 Balance 479 350 Intake: Intake, IV Titration 480 900 Amount Potassium Chloride 10 meq 100 In Water For Injection 1 100ml.bag @ 100 mls/hr IVPB Q1HR [facility] Rx#: [id number] Potassium Chloride 10 meq 200 In Water For Injection 1 100ml.bag @ 100 mls/hr IVPB Q1HR [facility] Rx#: [id number] Sodium Chloride 0.9% 1, 480 600 000 ml @ 60 mls/hr IV . [id number] [facility] Rx#:[id number] Output: Urine 550 Uretheral (Tan) 550 Stool 1 Other: Voiding Method Indwelling Catheter Indwelling Catheter - Exam Gen: frail, cachexic, alert, sitting up in bed, pleasant CV: RRR, no murmur Lungs: clear throughout Abd: soft, nontender Ext: no edema Neuro: bilateral weakness, sensation intact, reflexes 1+, psychomotor retardation. - Labs CBC & Chem 7: 01/16/19 08:57 01/16/19 08:57 Labs: Abnormal Lab Results - Last 24 Hours (Table) 01/14/19 01/15/19 01/15/19 Range/Units 16:59 07:44 21:51 Potassium 3.4 L (3.5-5.1) mmol/L Albumin (PEP) 1.72 L (3.80-4.90) g/dL Beta Globulins 0.56 L (0.60-1.30) g/dL Vitamin B12 1178.0 H (200.0-944.0) pg/mL 01/16/19 Range/Units 02:26 Potassium 3.2 L (3.5-5.1) mmol/L Albumin (PEP) (3.80-4.90) g/dL Beta Globulins (0.60-1.30) g/dL Vitamin B12 (200.0-944.0) pg/mL Microbiology - Last 24 Hours (Table) 01/13/19 14:26 Blood Culture - Preliminary Blood No Growth after 48 hours 01/13/19 14:20 Blood Culture - Preliminary Blood No Growth after 48 hours 01/13/19 15:15 Urine Culture - Final Urine,Catheterized Escherichia coli Assessment and Plan Assessment: 1) Protein-calorie malnutrition, severe Current Visit: Yes Status: Acute Code(s): E43 - UNSPECIFIED SEVERE PROTEIN- CALORIE MALNUTRITION SNOMED Code(s): 791062161 (2) Cachexia Current Visit: Yes Status: Acute Code(s): R64 - CACHEXIA SNOMED Code(s): 416348851 (3) Chronic pain Current Visit: Yes Status: Acute Code(s): G89.29 - OTHER CHRONIC PAIN SNOMED Code(s): 60417008 (4) Presence of intrathecal pump Current Visit: Yes Status: Acute Code(s): Z97.8 - PRESENCE OF OTHER SPECIFIED DEVICES SNOMED Code(s): 286048044 (5) Elevated liver enzymes Current Visit: Yes Status: Acute Code(s): R74.8 - ABNORMAL LEVELS OF OTHER SERUM ENZYMES SNOMED Code(s): 665081332 (6) Hypoalbuminemia Current Visit: Yes Status: Acute Code(s): E88.09 - OTH DISORDERS OF PLASMA-PROTEIN METABOLISM, NEC SNOMED Code(s): 875021072 (7) Macrocytic anemia, EGD pending Current Visit: Yes Status: Acute Code(s): D53.9 - NUTRITIONAL ANEMIA, UNSPECIFIED SNOMED Code(s): 35727009 (8) Malnutrition Current Visit: Yes Status: Acute Code(s): E46 - UNSPECIFIED PROTEIN-CALORIE MALNUTRITION SNOMED Code(s): 94555652 (9) Unintentional weight loss Current Visit: Yes Status: Acute Code(s): R63.4 - ABNORMAL WEIGHT LOSS SNOMED Code(s): 880962110 (10) Weakness Current Visit: Yes Status: Acute Code(s): R53.1 - WEAKNESS SNOMED Code(s): 62945651 (11) opiate withdrawal (12) acute metabolic, toxic encephalopathy secondary to pain pump (13) hypokalemia Plan: Continue on current medication regime ,monitoring and symptomatic treatment. NPO, EGD pending.Maintain IV fluid hydration. PT/OT. Close monitoring of LFTs, hemoglobin with repeat labs ordered for a.m. Prognosis guarded given multiple complex medical issues. The impression and plan of care has been dictated as directed. : I performed a history and examination of this patient, discussed the same with the dictator. I agree with the dictator's note ,documented as a scribe. Any additional findings or plans will be noted.
[2019-01-16] MEDS ORDERED: PROPOFOL 10 MG/ML 20 ML VIAL IV ONE (13:58)
[2019-01-16] MEDS ORDERED: LIDOCAINE 1% INJ 10MG/ML (20 ML MDV) ONE (13:58)
[2019-01-16] MEDS ORDERED: IV FLUID CONTINUATION 1,000 ML IV ONE (14:02)
--- NOTE | 2019-01-16 14:17 | P.PCN ---
Date of Procedure: 01/16/19 Procedure(s) Performed: BRIEF HISTORY: Patient is a 48-year-old, pleasant, white female, admitted the hospital with progressive fatigue and weakness and because of the constant in the last several months duration. She had CT of the chest abdomen and pelvis that was unremarkable. She had a colonoscopy by Dr. Whitaker in March 2018 that showed diverticulosis. Lately she is been a bili of intermittent dysphagia to solids and hence scheduled for an upper endoscopy to evaluate further. PROCEDURE PERFORMED: Esophagogastroduodenoscopy. PREOPERATIVE DIAGNOSIS: Intermittent dysphagia to solids and progressive weight loss of 80 pounds in the last 6 months duration. IV sedation per anesthesia. PROCEDURE: After informed consent was obtained, the patient was brought into the endoscopy unit. IV sedation was administered by Anesthesia under continuous monitoring. Initially the Olympus GIF-140 video endoscope was inserted into the mouth. Esophagus intubated without any difficulty. It was gradually advanced into the gastric pouch and there was evidence of Kyara-en-Y anastomosis identified. The scope was advanced into the afferent and efferent loops which appeared normal. Biopsies were done from the jejunum to evaluate for celiac disease. The scope was then withdrawn into the gastric pouch that appeared normal. Anastomosis appeared normal. The scope at this time was withdrawn to the esophagus. The GE junction was located at 39 cm from the incisors. The esophagus appeared normal. There were no erosions or ulcerations seen. There was no evidence of esophageal stricture. Biopsies were done from the mid and distal esophagus and the patient tolerated the procedure well. IMPRESSION: 1. Normal-appearing esophagus with no evidence of esophagitis or esophageal stricture. 2. Normal gastric pouch with normal Kyara-en-Y anastomosis with no evidence of stricture. RECOMMENDATIONS: The findings of this examination were discussed with the patient . She was advised to follow with the biopsy results. Diet will be advanced as tolerated..
--- NOTE | 2019-01-16 15:57 | P.PAINCN ---
History of Present Illness - Reason for Consult Consult date: 01/16/19 - History of Present Illness This is 48 years old female, with a history of chronic pain syndrome and chronic low back pain, she was managed as an outpatient by Dr. Dr. Reno neurologist, and she was on intrathecal morphine therapy, patient had recent refill of her intrathecal pain pump done by the Dr. Reno , and she was on intrathecal morphine 13.2mg per day, patient was admitted to [facility] because of generalized weakness, and the primary care contacted pain services, to decrease her intrathecal pain pump Does, and the pain pump decreased by the clinic nurse to 1.2 mg per day(which is equal to 90% decrease in her intrathecal daily dose), patient today complaining of increased pain, and she reported that her pain level 8-9/10, and the pain clinic contacted today to adjust her intrathecal therapy Past Medical History Additional Past Medical History / Comment(s): chronic pain History of Any Multi-Drug Resistant Organisms: None Reported Additional Past Surgical History / Comment(s): pain pump Past Anesthesia/Blood Transfusion Reactions: No Reported Reaction Past Psychological History: No Psychological Hx Reported Smoking Status: Current every day smoker Past Alcohol Use History: None Reported Past Drug Use History: None Reported - Past Family History Father Family Medical History: Diabetes Mellitus, Renal Disease Medications and Allergies Home Medications Medication Instructions Recorded Confirmed Type FLUoxetine HCL [PROzac] 40 mg PO DAILY 01/23/15 01/12/19 History Potassium Chloride [Klor-Con 10] 10 meq PO BID 01/23/15 01/12/19 History Cholestyramine (with Sugar) 4 gm PO DAILY PRN 01/12/19 01/12/19 History [Cholestyramine Packet] Ergocalciferol (Vitamin D2) 50,000 unit PO MO 01/12/19 01/12/19 History [Drisdol] FLUoxetine HCL [PROzac] 20 mg PO DAILY 01/12/19 01/12/19 History Hyoscyamine Sulfate [Levbid] 0.375 mg PO DAILY 01/12/19 01/12/19 History Levothyroxine Sodium [Synthroid] 100 mcg PO DAILY 01/12/19 01/12/19 History Morphine 1mg/1ml Pain Pump 1 dose INTRATHECA CONTINUOUS 01/12/19 01/12/19 History Pantoprazole [Protonix] 40 mg PO DAILY 01/12/19 01/12/19 History Pramipexole [Mirapex] 0.25 mg PO HS 01/12/19 01/12/19 History Promethazine HCl 12.5 mg PO Q6H PRN 01/12/19 01/12/19 History lamoTRIgine [LaMICtal] 250 mg PO BID 01/12/19 01/12/19 History risperiDONE [RisperDAL] 1 mg PO HS 01/12/19 01/12/19 History Allergies Allergy/AdvReac Type Severity Reaction Status Date / Time Penicillins Allergy Unknown Verified 01/12/19 21:18 Sulfa (Sulfonamide Allergy Unknown Verified 01/12/19 21:18 Antibiotics) Physical Exam Vitals: Vital Signs Temp Pulse Resp BP Pulse Ox 01/16/19 11:42 97.8 F 87 16 103/61 97 01/16/19 08:56 98.1 F 90 17 110/67 92 L 01/16/19 05:00 98.1 F 90 17 110/67 92 L 01/16/19 04:10 186/102 01/15/19 21:10 97.8 F 98 18 89/53 93 L Intake and Output 01/16/19 01/16/19 01/16/19 06:59 14:59 22:59 Intake Total 800 200 Output Total 550 Balance 250 200 Intake: IV 200 Intake, IV Titration 800 Amount Potassium Chloride 10 meq 200 In Water For Injection 1 100ml.bag @ 100 mls/hr IVPB Q1HR [facility] Rx#: [id number] Sodium Chloride 0.9% 1, 600 000 ml @ 60 mls/hr IV . [id number] [facility] Rx#:[id number] Output: Urine 550 Uretheral (Tan) 550 Other: Voiding Method Indwelling Catheter Indwelling Catheter # Bowel Movements 1 Weight 61.235 kg Physical Examinations : -Constitutiona : Cooperative , not in acute distress . -HEENT : nech : supple , no Lymphadenopathy , normal thyroid size . : eyes : no ptosis , no icterus, no photophobia . - neurologic : Cranial nerve II to XII intact , no focal neurological deffecit . -psychatric : alert , oriented X 3 , appropriate affect , intact judgment and insight . -Lymphatic : no Lymphadenopathy . - musculoskeltal : . Lumber spine moter stegnth lower extremities ,thigh and legs 4/5 Right side , 4/5 Left side Results CBC & Chem 7: 01/16/19 08:57 01/16/19 08:57 Labs: Abnormal Lab Results - Last 24 Hours (Table) 01/15/19 01/15/19 01/16/19 Range/Units 07:44 21:51 02:26 WBC (3.8-10.6) k/uL RBC (3.80-5.40) m/uL Hgb (11.4-16.0) gm/dL Hct (34.0-46.0) % MCV (80.0-100.0) fL MCHC (31.0-37.0) g/dL RDW (11.5-15.5) % Neutrophils # (1.3-7.7) k/uL Lymphocytes # (1.0-4.8) k/uL Potassium 3.4 L 3.2 L (3.5-5.1) mmol/L Chloride (98-107) mmol/L Carbon Dioxide (22-30) mmol/L Creatinine (0.52-1.04) mg/dL Glucose (74-99) mg/dL POC Glucose (mg/dL) (75-99) mg/dL Calcium (8.4-10.2) mg/dL AST (14-36) U/L Alkaline Phosphatase (38-126) U/L Total Protein (6.3-8.2) g/dL Albumin (3.5-5.0) g/dL Vitamin B12 1178.0 H (200.0-944.0) pg/mL 01/16/19 01/16/19 01/16/19 Range/Units 08:57 08:57 11:20 WBC 10.7 H (3.8-10.6) k/uL RBC 2.22 L (3.80-5.40) m/uL Hgb 7.2 L (11.4-16.0) gm/dL Hct 23.1 L (34.0-46.0) % MCV 104.1 H (80.0-100.0) fL MCHC 30.9 L (31.0-37.0) g/dL RDW 16.8 H (11.5-15.5) % Neutrophils # 9.6 H (1.3-7.7) k/uL Lymphocytes # 0.7 L (1.0-4.8) k/uL Potassium (3.5-5.1) mmol/L Chloride 111 H (98-107) mmol/L Carbon Dioxide 18 L (22-30) mmol/L Creatinine 0.35 L (0.52-1.04) mg/dL Glucose 55 L (74-99) mg/dL POC Glucose (mg/dL) 71 L (75-99) mg/dL Calcium 7.4 L (8.4-10.2) mg/dL AST 89 H (14-36) U/L Alkaline Phosphatase 214 H (38-126) U/L Total Protein 4.4 L (6.3-8.2) g/dL Albumin 1.9 L (3.5-5.0) g/dL Vitamin B12 (200.0-944.0) pg/mL Microbiology - Last 24 Hours (Table) 01/13/19 14:26 Blood Culture - Preliminary Blood No Growth after 48 hours 01/13/19 14:20 Blood Culture - Preliminary Blood No Growth after 48 hours 01/13/19 15:15 Urine Culture - Final Urine,Catheterized Escherichia coli Assessment and Plan Plan: Assessment and plan= chronic low back pain with secondary to lumbar spondylosis and lumbar degenerative disc disease, chronic pain syndrome Patient admitted to [facility] because of generalized weakness, patient was on intrathecal pain medication m orphine sulfate 13.2 mg per day and she was managed by her neurologist Dr. Reno, after the admission we decrease her intrathecal opioid therapy to 1.2 mg per day and currently she is complaining of increased pain, for this reason I interrogated the intrathecal pain pump and also I increased the infusion to 1.8 milligrams per day of intrathecal morphine. The intrathecal pain pump analyzed on January 14 issue patient currently on intrathecal morphine daily dose of 13.2 mg per day and patient had 33.6 mL a reservoir volume and patient had morphine sulfate concentration 25 mg per mL, January 14 we decrease the daily dose to 1.2 mg per day at which is equal to 90% decrease in her daily dose. Intrathecal pain pump interrogated today and I increased the daily dose to 1.8 mg per day of the daily dose intrathecal morphine Time with Patient: Less than 30 PQRS Measure Charge Sheet PQRS Narrative: Smoking Status Current every day smoker Blood Pressure [Left Arm] 103/61 Blood Pressure 86/48 Pain Intensity [Generalized] 0 Pain Intensity 10 Scale Used Numeric (1 - 10) Home Medications: Ambulatory Orders FLUoxetine HCL [PROzac] 40 mg PO DAILY 01/23/15 Potassium Chloride [Klor-Con 10] 10 meq PO BID 01/23/15 Cholestyramine (with Sugar) [Cholestyramine Packet] 4 gm PO DAILY PRN 01/12/19 Ergocalciferol (Vitamin D2) [Drisdol] 50,000 unit PO MO 01/12/19 FLUoxetine HCL [PROzac] 20 mg PO DAILY 01/12/19 Hyoscyamine Sulfate [Levbid] 0.375 mg PO DAILY 01/12/19 Levothyroxine Sodium [Synthroid] 100 mcg PO DAILY 01/12/19 Morphine 1mg/1ml Pain Pump 1 dose INTRATHECA CONTINUOUS 01/12/19 Pantoprazole [Protonix] 40 mg PO DAILY 01/12/19 Pramipexole [Mirapex] 0.25 mg PO HS 01/12/19 Promethazine HCl 12.5 mg PO Q6H PRN 01/12/19 lamoTRIgine [LaMICtal] 250 mg PO BID 01/12/19 risperiDONE [RisperDAL] 1 mg PO HS 01/12/19
[2019-01-16] MEDS: MULTIVITAMINS, THERA 1 EACH TAB PO SCH (16:21)
[2019-01-16] MEDS: THIAMINE 100 MG TAB PO SCH (16:21)
[2019-01-16] MEDS: POTASSIUM CHLORIDE ER 10 MEQ TAB.ER.PRT PO SCH ×2 (16:21→22:03)
[2019-01-16] MEDS: PANTOPRAZOLE 40 MG TABLET PO SCH (16:21)
[2019-01-16] MEDS: FOLIC ACID 1 MG TAB PO SCH (16:21)
[2019-01-16] MEDS: FLUoxetine HCL 20 MG CAP PO SCH ×2 (16:22)
[2019-01-16] MEDS: HYOSCYAMINE SULFATE 0.375 MG TAB.ER.12H PO SCH (16:22)
[2019-01-16 17:01] LABS: Glucose,Whole Blood 69 mg/dL (75-99)
[2019-01-16] MEDS: SODIUM CHLORIDE 0.9% 1,000 ML IV SCH (17:05)
[2019-01-16 17:24] LABS: Glucose,Whole Blood 74 mg/dL (75-99)
[2019-01-16 21:02] LABS: Glucose,Whole Blood 90 mg/dL (75-99)
[2019-01-16] MEDS: PRAMIPEXOLE 0.25 MG TAB PO SCH (22:03)
[2019-01-16] MEDS: risperiDONE 1 MG TAB PO SCH (22:03)
[2019-01-17] MEDS: ALPRAZolam 0.25 MG TAB PO PRN ×2 (01:53→21:32)
[2019-01-17 01:57] LABS: Glucose,Whole Blood 91 mg/dL (75-99)
[2019-01-17] MEDS: LEVOTHYROXINE 100 MCG TAB PO SCH (05:32)
[2019-01-17 06:17] LABS: Glucose,Whole Blood 86 mg/dL (75-99)
[2019-01-17 06:46] LABS: Glucose,Whole Blood 80 mg/dL (75-99)
[2019-01-17] MEDS: SODIUM CHLORIDE 0.9% 1,000 ML IV SCH (09:39)
[2019-01-17] MEDS: HYOSCYAMINE SULFATE 0.375 MG TAB.ER.12H PO SCH (09:47)
[2019-01-17] MEDS: FLUoxetine HCL 20 MG CAP PO SCH ×2 (09:47→09:48)
[2019-01-17 09:48] LABS: ALT 50 U/L (9-52); AST 104 U/L (14-36); African American GFR (CKD) >90 (>60 ml/min/1.73 sqM); Albumin 2.1 g/dL (3.5-5.0); Alkaline Phosphatase 190 U/L (38-126); Anion Gap 7 mmol/L; Blood Urea Nitrogen 5 mg/dL (7-17); Calcium 7.6 mg/dL (8.4-10.2); Carbon Dioxide 22 mmol/L (22-30); Chloride 110 mmol/L (98-107); Glucose 73 mg/dL (74-99); Non-African American GFR(CKD) >90 (>60 ml/min/1.73 sqM); Sodium 139 mmol/L (137-145); Total Bilirubin 0.8 mg/dL (0.2-1.3); Total Protein 4.9 g/dL (6.3-8.2)
[2019-01-17] MEDS: lamoTRIgine 100 MG TAB PO SCH ×2 (09:49→21:29)
[2019-01-17] MEDS: FOLIC ACID 1 MG TAB PO SCH (09:54)
[2019-01-17] MEDS: MULTIVITAMINS, THERA 1 EACH TAB PO SCH (09:54)
[2019-01-17] MEDS: THIAMINE 100 MG TAB PO SCH (09:54)
[2019-01-17] MEDS: POTASSIUM CHLORIDE ER 10 MEQ TAB.ER.PRT PO SCH ×2 (09:54→21:30)
[2019-01-17] MEDS: PANTOPRAZOLE 40 MG TABLET PO SCH (09:54)
[2019-01-17 09:57] LABS: Potassium 3.5 mmol/L (3.5-5.1)
[2019-01-17 09:58] LABS: Anisocytosis Slight; Basophils % (A) 0 %; Eosinophils # (A) 0.1 k/uL (0-0.7); Eosinophils % (A) 1 %; HCT 25.1 % (34.0-46.0); Hypochromasia Slight; Lymphocytes # (A) 0.8 k/uL (1.0-4.8); Lymphocytes % (A) 7 %; MCH 33.2 pg (25.0-35.0); MCV 103.6 fL (80.0-100.0); Macrocytosis Moderate; Mean Platelet Volume 6.5; Monocytes # (A) 0.3 k/uL (0-1.0); Monocytes % (A) 3 %; Neutrophils # (A) 10.3 k/uL (1.3-7.7); Neutrophils % (A) 89 %; Platelet Count 452 k/uL (150-450); RBC 2.42 m/uL (3.80-5.40); RDW 16.8 % (11.5-15.5); WBC 11.5 k/uL (3.8-10.6)
--- NOTE | 2019-01-17 11:12 | P.PN ---
Subjective Progress Note Date: 01/17/19 This is a 48 yo F with history of chronic pain who has an intrathecal morphine pain pump who is admitted for symptomatic weakness, anemia, anasarca after an 80 lb unintentional weight loss over the past few months. She was evaluated by GI and aside from hepatic steatosis, remainder of GI workup has been negative. She had an MRI cervical/thoracic/lumbar spine and a CT chest/abd/pelvis with contrast which were largely unremarkable. Today she is drowsy and per nursing staff intermittently irritable. She has no specific complaint and would like to be discharged. 01/15/2019 evaluated by pain management yesterday, pain pump reported as being turned down to lowest setting. Complains of chronic back pain. Currently in opioid withdrawal, mumbling, slurring of speech, defensive, incontinent of bowel movement. Maintained on IV fluids. Potassium 3.2. Evaluated by GI and neurology with recommendations noted and appreciated.Repeat urine culture growing gram-negative bacilli, only 10-49,000 CFU/mL, probably colonization. 01/16/2019 LFTs improving. Albumin 1.9.more coherent today, cooperative, att empting to work with PT. Continues in opioid withdrawal, improved from yesterday. Reports chronic back pain currently at a 7-8. Intrathecal pain pump at the lowest dose setting continues. Reports she did not sleep well, secondary to her nerves, sweaty. Denies nausea vomiting or diarrhea. Hemoglobin 7.2. No signs or symptoms of active bleeding reported. NPO, EGD pending. Denies lightheadedness, dizziness or focal deficits. Denies chest pain, palpitations or shortness of breath. Repeat urine cultures reporting E. coli with colonic consults 10-49,000. Maintained on Rocephin. 01/17/2019 more alert today.completed EGD yesterday, reporting normal-appearing esophagus with no evidence of esophagitis or esophageal stricture, normal gastric pouch was normal Kyara-en-Y anastomosis with no evidence of stricture. Biopsies obtained. Tolerated procedure well. Evaluated by pain management yesterday.Intrathecal morphine pump interrogated with dose increased. Brain MRI , limited exam ,reporting nonspecific white matter changes with small faint areas of abnormal signal within the neris and posterior cerebellar peduncles- nonspecific finding possibly related to hepatic encephalopathy, remote microvascular ischemia, demyelinating process, vasculitis or Lyme's disease- further evaluation/recommendations as per neurology. LFTs improving with the exception of mild elevation of AST. Afebrile, WBC 11.5. Objective - Vital Signs Vital signs: Vital Signs Temp 98.8 F 01/17/19 04:25 Pulse 91 01/17/19 04:25 Resp 18 01/17/19 04:25 BP 105/61 01/17/19 04:25 Pulse Ox 99 01/17/19 04:25 Intake & Output 01/16/19 01/17/19 01/17/19 18:59 06:59 18:59 Intake Total 200 600 Output Total 601 300 Balance -401 300 Weight 61.235 kg Intake: IV 200 Intake, IV Titration 600 Amount Sodium Chloride 0.9% 1, 600 000 ml @ 60 mls/hr IV . [id number] [facility] Rx#:[id number] Output: Urine 600 300 Uretheral (Tan) 300 Stool 1 Other: Voiding Method Indwelling Catheter Indwelling Catheter # Bowel Movements 1 - Exam Gen: frail, cachexic, alert, sitting up in bed, pleasant CV: RRR, no murmur Lungs: clear throughout Abd: soft, nontender Ext: no edema Neuro: bilateral weakness, sensation intact, reflexes 1+, psychomotor retardation. - Labs CBC & Chem 7: 01/17/19 08:32 01/17/19 08:32 Labs: Abnormal Lab Results - Last 24 Hours (Table) 01/16/19 01/16/19 01/16/19 Range/Units 08:57 08:57 11:20 WBC 10.7 H (3.8-10.6) k/uL RBC 2.22 L (3.80-5.40) m/uL Hgb 7.2 L (11.4-16.0) gm/dL Hct 23.1 L (34.0-46.0) % MCV 104.1 H (80.0-100.0) fL MCHC 30.9 L (31.0-37.0) g/dL RDW 16.8 H (11.5-15.5) % Neutrophils # 9.6 H (1.3-7.7) k/uL Lymphocytes # 0.7 L (1.0-4.8) k/uL Chloride 111 H (98-107) mmol/L Carbon Dioxide 18 L (22-30) mmol/L Creatinine 0.35 L (0.52-1.04) mg/dL Glucose 55 L (74-99) mg/dL POC Glucose (mg/dL) 71 L (75-99) mg/dL Calcium 7.4 L (8.4-10.2) mg/dL AST 89 H (14-36) U/L Alkaline Phosphatase 214 H (38-126) U/L Total Protein 4.4 L (6.3-8.2) g/dL Albumin 1.9 L (3.5-5.0) g/dL 01/16/19 01/16/19 Range/Units 16:51 17:21 WBC (3.8-10.6) k/uL RBC (3.80-5.40) m/uL Hgb (11.4-16.0) gm/dL Hct (34.0-46.0) % MCV (80.0-100.0) fL MCHC (31.0-37.0) g/dL RDW (11.5-15.5) % Neutrophils # (1.3-7.7) k/uL Lymphocytes # (1.0-4.8) k/uL Chloride (98-107) mmol/L Carbon Dioxide (22-30) mmol/L Creatinine (0.52-1.04) mg/dL Glucose (74-99) mg/dL POC Glucose (mg/dL) 69 L 74 L (75-99) mg/dL Calcium (8.4-10.2) mg/dL AST (14-36) U/L Alkaline Phosphatase (38-126) U/L Total Protein (6.3-8.2) g/dL Albumin (3.5-5.0) g/dL Microbiology - Last 24 Hours (Table) 01/13/19 14:26 Blood Culture - Preliminary Blood No Growth after 72 hours 01/13/19 14:20 Blood Culture - Preliminary Blood No Growth after 72 hours Assessment and Plan Assessment: 1) Protein-calorie malnutrition, severe Current Visit: Yes Status: Acute Code(s): E43 - UNSPECIFIED SEVERE PROTEIN- CALORIE MALNUTRITION SNOMED Code(s): 812725169 (2) Cachexia Current Visit: Yes Status: Acute Code(s): R64 - CACHEXIA SNOMED Code(s): 418544115 (3) Chronic pain Current Visit: Yes Status: Acute Code(s): G89.29 - OTHER CHRONIC PAIN SNOMED Code(s): 21504582 (4) Presence of intrathecal pump Current Visit: Yes Status: Acute Code(s): Z97.8 - PRESENCE OF OTHER SPECIFIED DEVICES SNOMED Code(s): 865889765 (5) Elevated liver enzymes Current Visit: Yes Status: Acute Code(s): R74.8 - ABNORMAL LEVELS OF OTHER SERUM ENZYMES SNOMED Code(s): 585925312 (6) Hypoalbuminemia Current Visit: Yes Status: Acute Code(s): E88.09 - [facility] DISORDERS OF PLASMA- PROTEIN METABOLISM, NEC SNOMED Code(s): 102072107 (7) Macrocytic anemia, EGD pending Current Visit: Yes Status: Acute Code(s): D53.9 - NUTRITIONAL ANEMIA, UNSPECIFIED SNOMED Code(s): 95665139 (8) Malnutrition Current Visit: Yes Status: Acute Code(s): E46 - UNSPECIFIED PROTEIN-CALORIE MALNUTRITION SNOMED Code(s): 25095400 (9) Unintentional weight loss, status post reported normal EGD, biopsies pending Current Visit: Yes Status: Acute Code(s): R63.4 - ABNORMAL WEIGHT LOSS SNOMED Code(s): 159410906 (10) Weakness Current Visit: Yes Status: Acute Code(s): R53.1 - WEAKNESS SNOMED Code(s): 17169911 (11) opiate withdrawal (12) acute metabolic, toxic encephalopathy secondary to pain pump (13) hypokalemia (14) nonspecific areas of abnormal signal involving posterior cerebellar peduncles, nonspecific areas of abnormal signal involving neris, throughout the paraventricular white matter-neurology following. Plan: Continue on current medication regime ,monitoring and symptomatic treatment. Brain MRI noted, further evaluation/recommendations as per neurology pending. PT/OT. Close monitoring of LFTs, hemoglobin with repeat labs ordered for a.m. Prognosis guarded given multiple complex medical issues. The impression and plan of care has been dictated as directed. : I performed a history and examination of this patient, discussed the same with the dictator. I agree with the dictator's note ,documented as a scribe. Any additional findings or plans will be noted.
[2019-01-17 11:45] LABS: Glucose,Whole Blood 89 mg/dL (75-99)
[2019-01-17 14:29] LABS: Glucose,CSF 47 mg/dL (40-70); Total Protein,CSF 33 mg/dL (12-60)
[2019-01-17 14:48] LABS: Appearance,CSF Clear; CSF Tube Number 4; CSF Tube Volume 4.1; Nucleated Cells, CSF 1 u/L (0-5); Red Blood Cell,CSF 0 u/L (0-10)
--- NOTE | 2019-01-17 16:14 | FL ---
Lumbar puncture INDICATION: Weakness FINDINGS: Fluoroscopy time: 31 seconds. Images obtained: 1. The procedure was explained to the patient. Risks complications and benefits were discussed. Alternat ant were discussed. All questions were answered. Informed consent was obtained. A timeout was performed. The L3-4 level was chosen for access. Maximum barrier sterile technique was utilized. The skin was cl eansed with Betadine and the patient sterilely prepped and draped in the usual manner. The skin and d eeper tissue was anesthetized with 1% Lidocaine. Utilizing a 18-gauge spinal needle the spinal canal was accessed. Good CSF return was evident. 12 mL CSF over 4 tubes were obtained. Sample container lab eled and transferred to pathology for further testing. The patient tolerated the procedure well. The patient was transferred to her room for recovery. IMPRESSIONS: 1. Successful Lumbar Puncture for CSF acquisition and sampling.
[2019-01-17 17:12] LABS: Glucose,Whole Blood 104 mg/dL (75-99)
--- NOTE | 2019-01-17 20:32 | P.PN ---
Progress Note - Text Progress Note Date: 01/17/19 SUBJECTIVE/INTERVAL EVENTS: No acute overnight events. EGD yesterday was unremarkable. PHYSICAL EXAMINATION: VITAL SIGNS: T 98.8 HR 91 RR 18 BP 105/61 O2 sat 99% on RA GEN.: cachectic, NAD, very tired but still able to answer most questions, rarely opened her eyes during eval HEENT: NCAT, sclera without icterus NECK: Supple SKIN AND EXTREMITIES: Warm to touch, no edema NEURO: MENTAL STATUS: Patient alert and oriented to self, place, time. Speech fluent, following all commands readily. CRANIAL NERVES II THROUGH XII: II: Pupils are equal and reactive to light symmetrically. III, IV, : Not cooperative to check extraocular movements V: Facial sensation intact from V1-3. VII. No clear facial asymmetry. XII: Tongue midline without fasciculation or atrophy MOTOR: Decreased bulk, decreased tone. No tremor. b/l UE at least antigravity 3/5, finger senior product designer 2/5 bilaterally, b/l LE 3/5, wiggles toes SENSORY: Decreased to light touch, temperature, pinprick and vibration in all 4 extremities but withdraws to pinch in b/l LE REFLEXES: 2+ throughout. Toes are downgoing. No clonus. Sybil's is absent COORDINATION/GAIT: deferred DIAGNOSTIC TESTING: LABORATORY: WBC 9.7 hgb 7.4 platelet 376 ESR 34 CRP 79.2 reticulocyte count 2.2 sodium 138 potassium 3.2 chloride 107 bicarb 26 BUN 9 creatinine 0.34 glucose 75 TSH 3.000 A1C 3.9, GIL neg, Vitamin B12 1613 VItamin B6 pending, Vitamin E pending, HIV NR, SPEP 4.1 (low), ammonia <9, urine toxicology yet to be obtained Vitamin E 1327 folate 1.4 Vitamin B6 <2 CSF WBC 1 RBC 0 Protein 33 Glucose 47 IMAGING: CT head without contrast 01/12/2019: Mild atrophy. No acute intracranial abnormality. MRI c-/t-/l-spine w/ contrast 01/13/19: Mild spondylotic changes in the lower cervical spine and lower lumbar spine. Small posterior disc herniation as above in the lower cervical spine and lumbar spine. No evidence of any significant spinal stenosis. No fracture seen MRI brain with and without contrast 01/16/2019: Limited exam demonstrates nonspecific white matter changes with small faint areas of abnormal signal within the neris and posterior cerebellar peduncles. Findings is nonspecific could be seen with hepatic encephalopathy, remote microvascular ischemia, demyelinating process, vasculitis or Lyme disease. ASSESSMENT: 48-year-old woman with past medical history of chronic pain, hypothyroidism, who presented to [facility] for generalized weakness. On exam, patient with significant b/l UE and LE weakness along with decreased sensation to light touch, pinprick, temperature and vibration. MRI c-/t-/l-spine w/o contrast without any significant lesion that would cause such symptoms. Patient is also irritable and not wanting to fully participate in my evaluation. Patient with remarkable anemia as well, which could account for generalized weakness. MRI brain w/ and w/o contrast with some white matter changes but nonspecific. CT chest/abdomen/pelvis with no evidence of malignancy (only showing severe hepatic steatosis), but concerning for recent 80-pound weight loss. Was concerned about possible CIDP or paraneoplastic syndrome causing patient's severe weakness and some paresthesia, but CSF is unremarkable. Vitamin B6 level extremely low. RECOMMENDATIONS: 1. will start Vitamin B6 supplementaion. Patient will be started on IV pyrido xine 100mg qday for 5 days (patient has lost a signifcant amount of weight and her Vitamin B6 level is extremely low. Starting next Monday (01/21/19), change to oral pyridoxine. If patient is getting discharged prior to Monday, okay to change to oral on day of discharge (50mg BID). 2. Patient would benefit from EMG/NCS as outpatient 3. Patient needs to follow up with outpatient Neurologist within 1-2 weeks of discharge for EMG/NCS and repeat vitamin B6 level as vitamin B6 toxicity has to be monitored. 4. Neurology will sign off at this time. Please contact with additional questions or concerns.
[2019-01-17] MEDS: PYRIDOXINE 100 MG/ML 1 ML VIAL IVP SCH (21:29)
[2019-01-17] MEDS: PRAMIPEXOLE 0.25 MG TAB PO SCH (21:30)
[2019-01-17] MEDS: risperiDONE 1 MG TAB PO SCH (21:30)
--- NOTE | 2019-01-17 21:37 | PN ---
PROGRESS NOTE DATE OF SERVICE: January 17, 2019 Patient is a 48-year-old pleasant white female admitted to the hospital with progressive weight loss, weakness, fatigue, not feeling well, dysphagia for the last few months duration. Weight loss of 80 pounds. She had an upper endoscopy done yesterday that showed normal-appearing esophagus with a normal-appearing gastric pouch and evidence of anastomosis that appeared normal. Biopsies were done from the jejunum as well as the esophagus and results are still pending at the time of this dictation. She had a colonoscopy in March of this year that was also unremarkable. CT scan of the abdomen and pelvis was unremarkable. The patient underwent a spinal tap today, results of which are still pending at the time of this dictation. She has seen a dietitian and who has made some dietary recommendations. She reports no abdominal pain. No nausea, vomiting. PHYSICAL EXAMINATION: Appears comfortable in no apparent distress. VITAL SIGNS: Stable. Blood pressure 119/57, pulse 56. HEENT examination unremarkable. Conjunctivae pink. Sclerae anicteric. Oral cavity no lesions. NECK: No JVD or lymph node enlargement. CHEST: Clear to auscultation. HEART: Regular rate and rhythm. ABDOMEN: Soft. Bowel sounds are positive. No organomegaly. EXTREMITIES: No pedal edema. SKIN no rashes. NEUROLOGIC: Alert and oriented x3. No focal deficits. IMPRESSION: 1. Progressive weight loss of 80 pounds with protein calorie malnutrition. Recent workup including an EGD, colonoscopy, CT of the abdomen and pelvis and chest unremarkable. 2. Chronic pain syndrome on morphine pump. 3. Dysphagia, status post EGD yesterday that did not show any upper gastrointestinal pathology. 4. Mild elevation of serum transaminases which are gradually improved, probably related to underlying alcoholic liver disease. 5. Altered mental status, improving. RECOMMENDATIONS: 1. Continue with symptomatic supportive care. 2. Await results of lumbar puncture. 3. She was encouraged to increase her oral intake. 4. Start nutritional supplements. 5. At this time we will sign off. Follow up as needed. Thank you for this consultation. MMRADHAL / JAYCOBN: [id number] /
[2019-01-18 00:48] LABS: Glucose,Whole Blood 92 mg/dL (75-99)
[2019-01-18] MEDS: LEVOTHYROXINE 100 MCG TAB PO SCH (06:21)
[2019-01-18] MEDS: SODIUM CHLORIDE 0.9% 1,000 ML IV SCH ×3 (06:23→22:16)
[2019-01-18 06:36] LABS: Glucose,Whole Blood 86 mg/dL (75-99)
[2019-01-18 08:22] LABS: Anisocytosis Slight; Basophils % (A) 0 %; Eosinophils # (A) 0.1 k/uL (0-0.7); Eosinophils % (A) 1 %; HGB 8.1 gm/dL (11.4-16.0); Hypochromasia Slight; Lymphocytes # (A) 0.8 k/uL (1.0-4.8); Lymphocytes % (A) 6 %; MCH 31.7 pg (25.0-35.0); MCHC 31.2 g/dL (31.0-37.0); MCV 101.7 fL (80.0-100.0); Macrocytosis Moderate; Mean Platelet Volume 8.7; Monocytes # (A) 0.5 k/uL (0-1.0); Monocytes % (A) 4 %; Neutrophils # (A) 12.3 k/uL (1.3-7.7); Neutrophils % (A) 90 %; Platelet Count 384 k/uL (150-450); RBC 2.55 m/uL (3.80-5.40); RDW 17.1 % (11.5-15.5); WBC 13.7 k/uL (3.8-10.6)
[2019-01-18] MEDS: lamoTRIgine 100 MG TAB PO SCH ×2 (09:49→22:15)
[2019-01-18] MEDS: PANTOPRAZOLE 40 MG TABLET PO SCH (09:49)
[2019-01-18] MEDS: PYRIDOXINE 100 MG/ML 1 ML VIAL IVP SCH (09:50)
[2019-01-18] MEDS: POTASSIUM CHLORIDE ER 10 MEQ TAB.ER.PRT PO SCH ×2 (09:50→22:15)
[2019-01-18] MEDS: HYOSCYAMINE SULFATE 0.375 MG TAB.ER.12H PO SCH (09:50)
[2019-01-18] MEDS: FLUoxetine HCL 20 MG CAP PO SCH ×2 (09:50)
--- NOTE | 2019-01-18 10:53 | P.DS ---
Providers Date of admission: 01/13/19 13:15 Expected date of discharge: 01/18/19 Attending physician: Unruly Looney MD Consults: 01/12/19 20:38 Consult Physician Routine Consulting Provider: Goran Morales Consult Reason/Comments: weight loss, malnutrition, concern for malignancy (significant weight loss) Do you want consulting provider notified?: Yes 01/14/19 09:03 Consult Physician Routine Consulting Provider: Joseline Ennis Consult Reason/Comments: weakness, weight loss, on morphine pump please eval dose Do you want consulting provider notified?: Yes Primary care physician: Annette Looney - Discharge Diagnosis(es) (1) Protein-calorie malnutrition, severe Current Visit: Yes Status: Acute (2) Cachexia Current Visit: Yes Status: Acute (3) Chronic pain Current Visit: Yes Status: Acute (4) Presence of intrathecal pump Current Visit: Yes Status: Acute (5) Elevated liver enzymes Current Visit: Yes Status: Acute (6) Hypoalbuminemia Current Visit: Yes Status: Acute (7) Macrocytic anemia Current Visit: Yes Status: Acute (8) Malnutrition Current Visit: Yes Status: Acute (9) Unintentional weight loss Current Visit: Yes Status: Acute (10) Weakness Current Visit: Yes Status: Acute Hospital Course: This is a 48 yo F with history of chronic pain who has an intrathecal morphine pain pump who is admitted for symptomatic weakness, anemia, anasarca after an 80 lb unintentional weight loss over the past few months. She was evaluated by GI and aside from hepatic steatosis, remainder of GI workup has been negative. She had an MRI cervical/thoracic/lumbar spine and a CT chest/abd/pelvis with contrast which were largely unremarkable. Today she is drowsy and per nursing staff intermittently irritable. 01/15/2019 evaluated by pain management yesterday, pain pump reported as being turned down to lowest setting. Complains of chronic back pain. Currently in opioid withdrawal, mumbling, slurring of speech, defensive, incontinent of bowel movement. Maintained on IV fluids. Potassium 3.2. Evaluated by GI and neurology with recommendations noted and appreciated.Repeat urine culture growing gram-negative bacilli, only 10-49,000 CFU/mL, probably colonization. 01/16/2019 LFTs improving. Albumin 1.9.more coherent today, cooperative, attempting to work with PT. Continues in opioid withdrawal, improved from yesterday. Reports chronic back pain currently at a 7-8. Intrathecal pain pump at the lowest dose setting continues. Reports she did not sleep well, secondary to her nerves, sweaty. Denies nausea vomiting or diarrhea. Hemoglobin 7.2. No signs or symptoms of active bleeding reported. NPO, EGD pending. Denies lightheadedness, dizziness or focal deficits. Denies chest pain, palpitations or shortness of breath. Repeat urine cultures reporting E. coli with colonic consults 10-49,000. Maintained on Rocephin. 01/17/2019 more alert today.completed EGD yesterday, reporting normal-appearing esophagus with no evidence of esophagitis or esophageal stricture, normal gastric pouch was normal Kyara-en-Y anastomosis with no evidence of stricture. Biopsies obtained. Tolerated procedure well. Evaluated by pain management yesterday.Intrathecal morphine pump interrogated with dose increased. Brain MRI , limited exam ,reporting nonspecific white matter changes with small faint areas of abnormal signal within the neris and posterior cerebellar peduncles- nonspecific finding possibly related to hepatic encephalopathy, remote microvascular ischemia, demyelinating process, vasculitis or Lyme's disease- further evaluation/recommendations as per neurology. LFTs improving with the exception of mild elevation of AST. Afebrile, WBC 11.5. On day of discharge her strength and mentation had improved. She was evaluated by GI and Neurology and workup was negative and consultants signed off. Her pain pump settings were decreased from 500 mcg / hr to 75 mcg /hr. She is recommended to continue with lowest tolerable pain pump setting. She is encouraged to use phenergan for nasuea and continue with protein shakes daily. She is discharged in stable condition with guarded prognosis and will follow up with her PCP and Neurologist. Patient Condition at Discharge: Serious Plan - Discharge Summary New Discharge Prescriptions: New Folic Acid 1 mg PO DAILY@1200 tab Pyridoxine [Vitamin B-6] 50 mg PO BID tab Continue FLUoxetine HCL [PROzac] 40 mg PO DAILY risperiDONE [RisperDAL] 1 mg PO HS Ergocalciferol (Vitamin D2) [Drisdol] 50,000 unit PO MO Promethazine HCl 12.5 mg PO Q6H PRN PRN Reason: Nausea And Vomiting Pramipexole [Mirapex] 0.25 mg PO HS Pantoprazole [Protonix] 40 mg PO DAILY Levothyroxine Sodium [Synthroid] 100 mcg PO DAILY lamoTRIgine [LaMICtal] 250 mg PO BID Hyoscyamine Sulfate [Levbid] 0.375 mg PO DAILY FLUoxetine HCL [PROzac] 20 mg PO DAILY Morphine 1mg/1ml Pain Pump 1 dose INTRATHECA CONTINUOUS Discontinued Potassium Chloride [Klor-Con 10] 10 meq PO BID Cholestyramine (with Sugar) [Cholestyramine Packet] 4 gm PO DAILY PRN PRN Reason: Constipation Discharge Medication List FLUoxetine HCL [PROzac] 40 mg PO DAILY 01/23/15 [History] Ergocalciferol (Vitamin D2) [Drisdol] 50,000 unit PO MO 01/12/19 [History] FLUoxetine HCL [PROzac] 20 mg PO DAILY 01/12/19 [History] Hyoscyamine Sulfate [Levbid] 0.375 mg PO DAILY 01/12/19 [History] Levothyroxine Sodium [Synthroid] 100 mcg PO DAILY 01/12/19 [History] Morphine 1mg/1ml Pain Pump 1 dose INTRATHECA CONTINUOUS 01/12/19 [History] Pantoprazole [Protonix] 40 mg PO DAILY 01/12/19 [History] Pramipexole [Mirapex] 0.25 mg PO HS 01/12/19 [History] Promethazine HCl 12.5 mg PO Q6H PRN 01/12/19 [History] lamoTRIgine [LaMICtal] 250 mg PO BID 01/12/19 [History] risperiDONE [RisperDAL] 1 mg PO HS 01/12/19 [History] Folic Acid 1 mg PO DAILY@1200 tab 01/18/19 [Rx] Pyridoxine [Vitamin B-6] 50 mg PO BID tab 01/18/19 [Rx] Follow up Appointment(s)/Referral(s): Annette Looney DO [Primary Care Provider] - 1-2 days Discharge Disposition: TRANSFER TO SNF/ECF
[2019-01-18 11:27] LABS: Glucose,Whole Blood 89 mg/dL (75-99)
[2019-01-18] MEDS: MULTIVITAMINS, THERA 1 EACH TAB PO SCH (13:41)
[2019-01-18] MEDS: THIAMINE 100 MG TAB PO SCH (13:41)
[2019-01-18] MEDS: FOLIC ACID 1 MG TAB PO SCH (13:41)
[2019-01-18 18:10] LABS: Glucose,Whole Blood 83 mg/dL (75-99)
[2019-01-18] MEDS: PRAMIPEXOLE 0.25 MG TAB PO SCH (22:16)
[2019-01-18] MEDS: risperiDONE 1 MG TAB PO SCH (22:16)
[2019-01-18 23:47] LABS: Glucose,Whole Blood 77 mg/dL (75-99)
[2019-01-19 03:47] LABS: Glucose,Whole Blood 98 mg/dL (75-99)
[2019-01-19] MEDS: LEVOTHYROXINE 100 MCG TAB PO SCH (05:37)
[2019-01-19 05:54] LABS: Glucose,Whole Blood 82 mg/dL (75-99)
[2019-01-19] MEDS: lamoTRIgine 100 MG TAB PO SCH ×2 (10:43→21:02)
[2019-01-19] MEDS: MULTIVITAMINS, THERA 1 EACH TAB PO SCH (10:43)
[2019-01-19] MEDS: PANTOPRAZOLE 40 MG TABLET PO SCH (10:43)
[2019-01-19] MEDS: FLUoxetine HCL 20 MG CAP PO SCH ×2 (10:44)
[2019-01-19] MEDS: THIAMINE 100 MG TAB PO SCH (10:44)
[2019-01-19] MEDS: HYOSCYAMINE SULFATE 0.375 MG TAB.ER.12H PO SCH (10:44)
[2019-01-19] MEDS: PYRIDOXINE 100 MG/ML 1 ML VIAL IVP SCH (10:45)
[2019-01-19] MEDS: FOLIC ACID 1 MG TAB PO SCH (10:45)
[2019-01-19] MEDS: POTASSIUM CHLORIDE ER 10 MEQ TAB.ER.PRT PO SCH ×2 (10:45→21:03)
[2019-01-19 12:10] LABS: Glucose,Whole Blood 84 mg/dL (75-99)
--- NOTE | 2019-01-19 12:39 | P.PN ---
Subjective Progress Note Date: 01/19/19 Principal diagnosis: Cachexia Covering for Dr. Looney over the weekend Ms. Armijo is a 48 yo F with history of chronic pain who has an intrathecal morphine pain pump who is admitted for symptomatic weakness, anemia, anasarca after an 80 lb unintentional weight loss over the past few months. She was evaluated by GI and aside from hepatic steatosis, remainder of GI workup has been negative. She had an MRI cervical/thoracic/lumbar spine and a CT chest/abd/pelvis with contrast which were largely unremarkable. Patient had extensive workup for her lower extremity weakness including MRI - nonspecific white matter changes with small faint areas of abnormal signal within the neris and posterior cerebellar peduncles-nonspecific finding possibly related to hepatic encephalopathy, remote microvascular ischemia, demyelinating process, vasculitis or Lyme's disease and LP done. Patient also had EGD done which was showing no evidence of esophagitis or esophageal stricture and normal gastric production, was normal Kyara-en-Y anastomosis with no evidence of stricture. On 01/19/2019- as per the nursing staff report patient has poor by mouth intake. Her weakness continues to be the same. Patient reports loss of appetite. Patient is confused at times. She denies having any chest pain or palpitations. No abdominal pain nausea vomiting or diarrhea. She complains of generalized weakness. No dysuria or hematuria. Patient's labs and medications have been reviewed. Active Medications Alprazolam (Xanax) 0.25 mg PO TID PRN PRN Reason: Anxiety Last Admin: 01/17/19 21:32 Dose: 0.25 mg Documented by: Cholestyramine Resin (Questran) 4 gm PO DAILY PRN PRN Reason: Constipation Ergocalciferol (Vitamin D2) 50,000 unit PO MO [facility] Last Admin: 01/14/19 08:20 Dose: 50,000 unit Documented by: Fluoxetine HCl (Prozac) 40 mg PO DAILY [facility] Last Admin: 01/19/19 10:44 Dose: 40 mg Documented by: Fluoxetine HCl (Prozac) 20 mg PO DAILY [facility] Last Admin: 01/19/19 10:44 Dose: 20 mg Documented by: Folic Acid (Folic Acid) 1 mg PO DAILY@1200 [facility] Last Admin: 01/19/19 10:45 Dose: 1 mg Documented by: Hyoscyamine (Levbid) 0.375 mg PO DAILY [facility] Last Admin: 01/19/19 10:44 Dose: 0.375 mg Documented by: Sodium Chloride (Saline 0.9%) 1,000 mls @ 60 mls/hr IV .[id number] [facility] Last Admin: 01/18/19 22:16 Dose: 60 mls/hr Documented by: Ceftriaxone Sodium 1 gm/ (Sodium Chloride) 50 mls @ 100 mls/hr IVPB Q24HR [facility] Last Admin: 01/19/19 10:45 Dose: 100 mls/hr Documented by: Lamotrigine (Lamictal) 250 mg PO BID [facility] Last Admin: 01/19/19 10:43 Dose: 250 mg Documented by: Levothyroxine Sodium (Synthroid) 100 mcg PO DAILY@0630 [facility] Last Admin: 01/19/19 05:37 Dose: 100 mcg Documented by: Lorazepam (Ativan) 0.5 mg IV Q30M PRN PRN Reason: Anxiety Last Admin: 01/13/19 16:42 Dose: 0.5 mg Documented by: Miscellaneous Information (Potassium Per Protocol) 1 each MISCELLANE DAILY PRN; Protocol PRN Reason: Per Protocol Miscellaneous Information (Potassium Per Protocol) 1 each MISCELLANE DAILY PRN; Protocol PRN Reason: Per Protocol Miscellaneous Information (Magnesium Per Protocol) 1 each MISCELLANE DAILY PRN; Protocol PRN Reason: Per Protocol Multivitamins (Theragran) 1 each PO DAILY@1200 [facility] Last Admin: 01/19/19 10:43 Dose: 1 each Documented by: Naloxone HCl (Narcan) 0.2 mg IV Q2M PRN PRN Reason: Opioid Reversal Pantoprazole Sodium (Protonix) 40 mg PO DAILY [facility] Last Admin: 01/19/19 10:43 Dose: 40 mg Documented by: Potassium Chloride (K-Dur 10) 10 meq PO BID [facility] Last Admin: 01/19/19 10:45 Dose: 10 meq Documented by: Pramipexole Dihydrochloride (Mirapex) 0.25 mg PO HS [facility] Last Admin: 01/18/19 22:16 Dose: 0.25 mg Documented by: Promethazine HCl (Phenergan) 12.5 mg PO Q6H PRN PRN Reason: Nausea And Vomiting Pyridoxine HCl (Vitamin B-6) 100 mg IVP DAILY [facility] Stop: 01/21/19 23:59 Last Admin: 01/19/19 10:45 Dose: 100 mg Documented by: Pyridoxine HCl (Vitamin B-6) 50 mg PO BID [facility] Risperidone (Risperdal) 1 mg PO HS [facility] Last Admin: 01/18/19 22:16 Dose: 1 mg Documented by: Thiamine HCl (Vitamin B-1) 100 mg PO DAILY@1200 [facility] Last Admin: 01/19/19 10:44 Dose: 100 mg Documented by: Objective - Vital Signs Vital signs: Vital Signs Temp 98.1 F 01/19/19 04:32 Pulse 88 01/19/19 04:32 Resp 18 01/19/19 04:32 BP 113/59 01/19/19 04:32 Pulse Ox 94 L 01/19/19 04:32 Intake & Output 01/18/19 01/19/19 01/19/19 18:59 06:59 18:59 Intake Total 50 540 Output Total 1 701 1 Balance 49 -161 -1 Weight 61.235 kg Intake: Intake, IV Titration 50 Amount cefTRIAXone 1 gm In 50 Sodium Chloride 0.9% 50 ml @ 100 mls/hr IVPB Q24HR [facility] Rx#:[id number] Oral 540 Output: Urine 700 Uretheral (Tan) 700 Stool 1 1 1 Other: Voiding Method Indwelling Catheter Indwelling Catheter Indwelling Catheter # Voids 1 - Exam Gen: frail, cachexic, alert, sitting up in bed, pleasant CV: RRR, no murmur Lungs: Bilateral breath sounds are positive. No wheeze or crackles. Abd: soft, nontender, nontender. Ext: Positive for bilateral pitting edema edema Neuro: bilateral weakness, sensation intac, psychomotor retardation. - Labs CBC & Chem 7: 01/18/19 07:11 01/17/19 08:32 Labs: Microbiology - Last 24 Hours (Table) 01/17/19 13:40 CSF Gram Stain - Preliminary Cerebral Spinal Fluid CSF Culture - Preliminary 01/13/19 14:26 Blood Culture - Preliminary Blood No Growth after 120 hours 01/13/19 14:20 Blood Culture - Preliminary Blood No Growth after 120 hours Assessment and Plan Assessment: ASSESSMENT Cachexia Severe protein calorie malnutrition Elevated LFTs Microcytic anemia Weakness of upper and lower extremities Hypokalemia Intrathecal pump for chronic low back pain PLAN : Patient had extensive workup done by neurology and GI on and that they have signed off on the patient. Patient was scheduled to be discharged to intermediate yesterday, but the discharge is on hold pending approval from the insurance company. The patient will be continued with the current medication regimen no changes have been made today. Will continue to follow the patient.
[2019-01-19 17:27] LABS: Glucose,Whole Blood 132 mg/dL (75-99)
[2019-01-19 20:16] LABS: African American GFR (CKD) >90 (>60 ml/min/1.73 sqM); Anion Gap 7 mmol/L; Blood Urea Nitrogen 3 mg/dL (7-17); Calcium 7.6 mg/dL (8.4-10.2); Carbon Dioxide 23 mmol/L (22-30); Chloride 108 mmol/L (98-107); Glucose 85 mg/dL (74-99); Non-African American GFR(CKD) >90 (>60 ml/min/1.73 sqM); Potassium 3.3 mmol/L (3.5-5.1); Sodium 138 mmol/L (137-145)
[2019-01-19] MEDS: PRAMIPEXOLE 0.25 MG TAB PO SCH (21:02)
[2019-01-19] MEDS: risperiDONE 1 MG TAB PO SCH (21:02)
[2019-01-19 23:32] LABS: Glucose,Whole Blood 95 mg/dL (75-99)
[2019-01-20] MEDS: SODIUM CHLORIDE 0.9% 1,000 ML IV SCH ×2 (02:16→22:55)
[2019-01-20] MEDS: LEVOTHYROXINE 100 MCG TAB PO SCH (05:24)
[2019-01-20 05:41] LABS: Glucose,Whole Blood 83 mg/dL (75-99)
[2019-01-20 07:49] LABS: Anisocytosis Slight; Basophils % (A) 0 %; Eosinophils # (A) 0.1 k/uL (0-0.7); Eosinophils % (A) 1 %; HGB 7.9 gm/dL (11.4-16.0); Hypochromasia Slight; Lymphocytes # (A) 0.6 k/uL (1.0-4.8); Lymphocytes % (A) 6 %; MCH 32.7 pg (25.0-35.0); MCHC 31.6 g/dL (31.0-37.0); MCV 103.4 fL (80.0-100.0); Macrocytosis Moderate; Mean Platelet Volume 7.3; Monocytes # (A) 0.4 k/uL (0-1.0); Monocytes % (A) 3 %; Neutrophils # (A) 9.5 k/uL (1.3-7.7); Neutrophils % (A) 90 %; Platelet Count 563 k/uL (150-450); RBC 2.41 m/uL (3.80-5.40); RDW 17.6 % (11.5-15.5); WBC 10.6 k/uL (3.8-10.6)
[2019-01-20 08:04] LABS: African American GFR (CKD) >90 (>60 ml/min/1.73 sqM); Anion Gap 7 mmol/L; Blood Urea Nitrogen 2 mg/dL (7-17); Calcium 7.2 mg/dL (8.4-10.2); Carbon Dioxide 25 mmol/L (22-30); Chloride 107 mmol/L (98-107); Glucose 64 mg/dL (74-99); Non-African American GFR(CKD) >90 (>60 ml/min/1.73 sqM); Potassium 3.1 mmol/L (3.5-5.1); Sodium 139 mmol/L (137-145)
[2019-01-20] MEDS: FLUoxetine HCL 20 MG CAP PO SCH ×2 (10:08)
[2019-01-20] MEDS: lamoTRIgine 100 MG TAB PO SCH ×2 (10:08→22:45)
[2019-01-20] MEDS: MULTIVITAMINS, THERA 1 EACH TAB PO SCH (10:08)
[2019-01-20] MEDS: THIAMINE 100 MG TAB PO SCH (10:08)
[2019-01-20] MEDS: PYRIDOXINE 100 MG/ML 1 ML VIAL IVP SCH (10:08)
[2019-01-20] MEDS: POTASSIUM CHLORIDE ER 10 MEQ TAB.ER.PRT PO SCH ×3 (10:09→23:04)
[2019-01-20] MEDS: HYOSCYAMINE SULFATE 0.375 MG TAB.ER.12H PO SCH (10:09)
[2019-01-20] MEDS: FOLIC ACID 1 MG TAB PO SCH (10:09)
[2019-01-20] MEDS: PANTOPRAZOLE 40 MG TABLET PO SCH (10:10)
[2019-01-20 11:07] LABS: Glucose,Whole Blood 89 mg/dL (75-99)
[2019-01-20] MEDS: POTASSIUM CHLORIDE 10 MEQ in WATER FOR INJECTION 1 100ML.BAG IVPB SCH ×4 (11:51→18:59)
[2019-01-20] MEDS: PROMETHAZINE 25 MG TAB PO PRN ×2 (14:19→21:49)
--- NOTE | 2019-01-20 16:36 | P.PN ---
Subjective Progress Note Date: 01/20/19 Principal diagnosis: Cachexia Covering for Dr. Looney over the weekend Ms. Armijo is a 48 yo F with history of chronic pain who has an intrathecal morphine pain pump who is admitted for symptomatic weakness, anemia, anasarca after an 80 lb unintentional weight loss over the past few months. She was evaluated by GI and aside from hepatic steatosis, remainder of GI workup has been negative. She had an MRI cervical/thoracic/lumbar spine and a CT chest/abd/pelvis with contrast which were largely unremarkable. Patient had extensive workup for her lower extremity weakness including MRI - nonspecific white matter changes with small faint areas of abnormal signal within the neris and posterior cerebellar peduncles-nonspecific finding possibly related to hepatic encephalopathy, remote microvascular ischemia, demyelinating process, vasculitis or Lyme's disease and LP done. Patient also had EGD done which was showing no evidence of esophagitis or esophageal stricture and normal gastric production, was normal Kyara-en-Y anastomosis with no evidence of stricture. On 01/19/2019- as per the nursing staff report patient has poor by mouth intake. Her weakness continues to be the same. Patient reports loss of appetite. Patient is confused at times. She denies having any chest pain or palpitations. No abdominal pain nausea vomiting or diarrhea. She complains of generalized weakness. No dysuria or hematuria. On 01/20/2019 - patient is lying in the bed comfortably. No complaints overnight. Patient reports loss of appetite and that she takes promethazine 15 mg 2-3 pills when necessary. Patient denies having any fevers, chills or rigors. No chest pain or palpitations. No cough or difficulty in breathing. No abdominal pain, nausea vomiting or diarrhea or constipation. No dysuria or hematuria. Patient's labs and medications have been reviewed. Active Medications Alprazolam (Xanax) 0.25 mg PO TID PRN PRN Reason: Anxiety Last Admin: 01/17/19 21:32 Dose: 0.25 mg Documented by: Cholestyramine Resin (Questran) 4 gm PO DAILY PRN PRN Reason: Constipation Ergocalciferol (Vitamin D2) 50,000 unit PO MO [facility] Last Admin: 01/14/19 08:20 Dose: 50,000 unit Documented by: Fluoxetine HCl (Prozac) 40 mg PO DAILY [facility] Last Admin: 01/20/19 10:08 Dose: 40 mg Documented by: Fluoxetine HCl (Prozac) 20 mg PO DAILY [facility] Last Admin: 01/20/19 10:08 Dose: 20 mg Documented by: Folic Acid (Folic Acid) 1 mg PO DAILY@1200 [facility] Last Admin: 01/20/19 10:09 Dose: 1 mg Documented by: Hyoscyamine (Levbid) 0.375 mg PO DAILY [facility] Last Admin: 01/20/19 10:09 Dose: 0.375 mg Documented by: Sodium Chloride (Saline 0.9%) 1,000 mls @ 60 mls/hr IV .[id number] [facility] Last Admin: 01/20/19 02:16 Dose: Not Given Documented by: Ceftriaxone Sodium 1 gm/ (Sodium Chloride) 50 mls @ 100 mls/hr IVPB Q24HR [facility] Last Admin: 01/20/19 10:07 Dose: 100 mls/hr Documented by: Lamotrigine (Lamictal) 250 mg PO BID [facility] Last Admin: 01/20/19 10:08 Dose: 250 mg Documented by: Levothyroxine Sodium (Synthroid) 100 mcg PO DAILY@0630 [facility] Last Admin: 01/20/19 05:24 Dose: 100 mcg Documented by: Lorazepam (Ativan) 0.5 mg IV Q30M PRN PRN Reason: Anxiety Last Admin: 01/13/19 16:42 Dose: 0.5 mg Documented by: Miscellaneous Information (Potassium Per Protocol) 1 each MISCELLANE DAILY PRN; Protocol PRN Reason: Per Protocol Miscellaneous Information (Potassium Per Protocol) 1 each MISCELLANE DAILY PRN; Protocol PRN Reason: Per Protocol Miscellaneous Information (Magnesium Per Protocol) 1 each MISCELLANE DAILY PRN; Protocol PRN Reason: Per Protocol Multivitamins (Theragran) 1 each PO DAILY@1200 [facility] Last Admin: 01/20/19 10:08 Dose: 1 each Documented by: Naloxone HCl (Narcan) 0.2 mg IV Q2M PRN PRN Reason: Opioid Reversal Pantoprazole Sodium (Protonix) 40 mg PO DAILY [facility] Last Admin: 01/20/19 10:10 Dose: 40 mg Documented by: Potassium Chloride (K-Dur 10) 10 meq PO BID [facility] Last Admin: 01/20/19 10:09 Dose: 10 meq Documented by: Pramipexole Dihydrochloride (Mirapex) 0.[address] [facility] Last Admin: 01/19/19 21:02 Dose: 0.25 mg Documented by: Promethazine HCl (Phenergan) 12.5 mg PO Q6H PRN PRN Reason: Nausea And Vomiting Last Admin: 01/20/19 14:19 Dose: 12.5 mg Documented by: Pyridoxine HCl (Vitamin B-6) 100 mg IVP DAILY [facility] Stop: 01/21/19 23:59 Last Admin: 01/20/19 10:08 Dose: 100 mg Documented by: Pyridoxine HCl (Vitamin B-6) 50 mg PO BID [facility] Risperidone (Risperdal) [address] [facility] Last Admin: 01/19/19 21:02 Dose: 1 mg Documented by: Thiamine HCl (Vitamin B-1) 100 mg PO DAILY@1200 [facility] Last Admin: 01/20/19 10:08 Dose: 100 mg Documented by: Objective - Vital Signs Vital signs: Vital Signs Temp 98.8 F 01/20/19 13:05 Pulse 101 H 01/20/19 13:05 Resp 17 01/20/19 13:05 BP 109/68 01/20/19 13:05 Pulse Ox 97 01/20/19 13:05 Intake & Output 01/19/19 01/20/19 01/20/19 18:59 06:59 18:59 Intake Total 530 660 630 Output Total 1 602 1 Balance 529 58 629 Intake: Intake, IV Titration 530 420 630 Amount Potassium Chloride 10 meq 100 In Water For Injection 1 100ml.bag @ 100 mls/hr IVPB Q1HR [facility] Rx#: [id number] Sodium Chloride 0.9% 1, 480 420 480 000 ml @ 60 mls/hr IV . [id number] [facility] Rx#:[id number] cefTRIAXone 1 gm In 50 50 Sodium Chloride 0.9% 50 ml @ 100 mls/hr IVPB Q24HR [facility] Rx#:[id number] Oral 240 Output: Urine 600 Stool 1 2 1 Other: Voiding Method Indwelling Catheter Indwelling Catheter Indwelling Catheter # Bowel Movements 1 - Exam Gen: frail, cachexic, alert, sitting up in bed, pleasant CV: RRR, no murmur Lungs: Bilateral breath sounds are positive. No wheeze or crackles. Abd: soft, nontender, nontender. Ext: Positive for bilateral pitting edema edema Neuro: bilateral weakness, sensation intac, psychomotor retardation. - Labs CBC & Chem 7: 01/20/19 06:31 01/20/19 06:24 Labs: Abnormal Lab Results - Last 24 Hours (Table) 01/19/19 01/19/19 01/20/19 Range/Units 17:25 18:51 06:24 RBC (3.80-5.40) m/uL Hgb (11.4-16.0) gm/dL Hct (34.0-46.0) % MCV (80.0-100.0) fL RDW (11.5-15.5) % Plt Count (150-450) k/uL Neutrophils # (1.3-7.7) k/uL Lymphocytes # (1.0-4.8) k/uL Potassium 3.3 L 3.1 L (3.5-5.1) mmol/L Chloride 108 H (98-107) mmol/L BUN 3 L 2 L (7-17) mg/dL Creatinine 0.35 L 0.32 L (0.52-1.04) mg/dL Glucose 64 L (74-99) mg/dL POC Glucose (mg/dL) 132 H (75-99) mg/dL Calcium 7.6 L 7.2 L (8.4-10.2) mg/dL 01/20/19 Range/Units 06:31 RBC 2.41 L (3.80-5.40) m/uL Hgb 7.9 L (11.4-16.0) gm/dL Hct 25.0 L (34.0-46.0) % MCV 103.4 H (80.0-100.0) fL RDW 17.6 H (11.5-15.5) % Plt Count 563 H (150-450) k/uL Neutrophils # 9.5 H (1.3-7.7) k/uL Lymphocytes # 0.6 L (1.0-4.8) k/uL Potassium (3.5-5.1) mmol/L Chloride (98-107) mmol/L BUN (7-17) mg/dL Creatinine (0.52-1.04) mg/dL Glucose (74-99) mg/dL POC Glucose (mg/dL) (75-99) mg/dL Calcium (8.4-10.2) mg/dL Microbiology - Last 24 Hours (Table) 01/13/19 14:26 Blood Culture - Final Blood No Growth after 144 hours 01/13/19 14:20 Blood Culture - Final Blood No Growth after 144 hours Assessment and Plan Assessment: ASSESSMENT Cachexia Severe protein calorie malnutrition Elevated LFTs Microcytic anemia Weakness of upper and lower extremities Hypokalemia Intrathecal pump for chronic low back pain PLAN : Patient had extensive workup done by neurology and GI on and that they have signed off on the patient. Patient was scheduled to be discharged to care home yesterday, but the discharge is on hold pending approval from the insurance company. The patient will be continued with the current medication regimen. We will add promethazine for her decreased appetite.
[2019-01-20 17:15] LABS: Glucose,Whole Blood 86 mg/dL (75-99)
[2019-01-20] MEDS: PRAMIPEXOLE 0.25 MG TAB PO SCH (22:44)
[2019-01-20] MEDS: risperiDONE 1 MG TAB PO SCH (22:45)
[2019-01-20] MEDS: ALPRAZolam 0.25 MG TAB PO PRN (22:57)
[2019-01-21 00:06] LABS: Glucose,Whole Blood 100 mg/dL (75-99)
[2019-01-21] MEDS: POTASSIUM CHLORIDE 10 MEQ in WATER FOR INJECTION 1 100ML.BAG IVPB SCH ×4 (00:21→03:45)
[2019-01-21] MEDS: SODIUM CHLORIDE 0.9% 1,000 ML IV SCH (00:23)
[2019-01-21] MEDS: LEVOTHYROXINE 100 MCG TAB PO SCH (06:19)
[2019-01-21 06:25] LABS: Glucose,Whole Blood 88 mg/dL (75-99)
[2019-01-21 11:09] LABS: Glucose,Whole Blood 90 mg/dL (75-99)
[2019-01-21] MEDS: lamoTRIgine 100 MG TAB PO SCH ×2 (11:11→20:51)
[2019-01-21] MEDS: POTASSIUM CHLORIDE ER 10 MEQ TAB.ER.PRT PO SCH ×2 (11:11→20:51)
[2019-01-21] MEDS: MULTIVITAMINS, THERA 1 EACH TAB PO SCH (11:11)
[2019-01-21] MEDS: THIAMINE 100 MG TAB PO SCH (11:11)
[2019-01-21] MEDS: FOLIC ACID 1 MG TAB PO SCH (11:11)
[2019-01-21] MEDS: FLUoxetine HCL 20 MG CAP PO SCH ×2 (11:11→11:12)
[2019-01-21] MEDS: ERGOCALCIFEROL 50,000 UNIT CAP PO SCH (11:11)
[2019-01-21] MEDS: HYOSCYAMINE SULFATE 0.375 MG TAB.ER.12H PO SCH (11:12)
[2019-01-21] MEDS: PANTOPRAZOLE 40 MG TABLET PO SCH (11:12)
[2019-01-21] MEDS: PYRIDOXINE 100 MG/ML 1 ML VIAL IVP SCH (11:12)
[2019-01-21] MEDS: PYRIDOXINE 50 MG TAB PO SCH ×2 (11:13→20:52)
[2019-01-21] MEDS: PROMETHAZINE 25 MG TAB PO PRN ×2 (11:27→18:12)
--- NOTE | 2019-01-21 16:20 | P.PN ---
Subjective Progress Note Date: 01/21/19 This is a 48 yo F with history of chronic pain who has an intrathecal morphine pain pump who is admitted for symptomatic weakness, anemia, anasarca after an 80 lb unintentional weight loss over the past few months. She was evaluated by GI and aside from hepatic steatosis, remainder of GI workup has been negative. She had an MRI cervical/thoracic/lumbar spine and a CT chest/abd/pelvis with contrast which were largely unremarkable. Today she is drowsy and per nursing staff intermittently irritable. She has no specific complaint and would like to be discharged. 01/15/2019 evaluated by pain management yesterday, pain pump reported as being turned down to lowest setting. Complains of chronic back pain. Currently in opioid withdrawal, mumbling, slurring of speech, defensive, incontinent of bowel movement. Maintained on IV fluids. Potassium 3.2. Evaluated by GI and neurology with recommendations noted and appreciated.Repeat urine culture growing gram-negative bacilli, only 10-49,000 CFU/mL, probably colonization. 01/16/2019 LFTs improving. Albumin 1.9.more coherent today, cooperative, att empting to work with PT. Continues in opioid withdrawal, improved from yesterday. Reports chronic back pain currently at a 7-8. Intrathecal pain pump at the lowest dose setting continues. Reports she did not sleep well, secondary to her nerves, sweaty. Denies nausea vomiting or diarrhea. Hemoglobin 7.2. No signs or symptoms of active bleeding reported. NPO, EGD pending. Denies lightheadedness, dizziness or focal deficits. Denies chest pain, palpitations or shortness of breath. Repeat urine cultures reporting E. coli with colonic consults 10-49,000. Maintained on Rocephin. 01/17/2019 more alert today.completed EGD yesterday, reporting normal-appearing esophagus with no evidence of esophagitis or esophageal stricture, normal gastric pouch was normal Kyara-en-Y anastomosis with no evidence of stricture. Biopsies obtained. Tolerated procedure well. Evaluated by pain management yesterday.Intrathecal morphine pump interrogated with dose increased. Brain MRI , limited exam ,reporting nonspecific white matter changes with small faint areas of abnormal signal within the neris and posterior cerebellar peduncles- nonspecific finding possibly related to hepatic encephalopathy, remote microvascular ischemia, demyelinating process, vasculitis or Lyme's disease- further evaluation/recommendations as per neurology. LFTs improving with the exception of mild elevation of AST. Afebrile, WBC 11.5. 01/21/2019 Discharge planning in progress, accepted by subacute rehab., Author ization pending. No overnight events. Vital signs stable. Objective - Vital Signs Vital signs: Vital Signs Temp 98.4 F 01/21/19 11:17 Pulse 106 H 01/21/19 11:17 Resp 18 01/21/19 11:17 BP 114/71 01/21/19 11:17 Pulse Ox 97 01/21/19 11:17 Intake & Output 01/20/19 01/21/19 01/21/19 18:59 06:59 18:59 Intake Total 630 1120 480 Output Total 1 550 Balance 629 570 480 Intake: Intake, IV Titration 630 1120 480 Amount Potassium Chloride 10 meq 100 300 In Water For Injection 1 100ml.bag @ 100 mls/hr IVPB Q1HR [facility] Rx#: [id number] Potassium Chloride 10 meq 400 In Water For Injection 1 100ml.bag @ 100 mls/hr IVPB Q1HR [facility] Rx#: [id number] Sodium Chloride 0.9% 1, 480 420 480 000 ml @ 60 mls/hr IV . [id number] [facility] Rx#:[id number] cefTRIAXone 1 gm In 50 Sodium Chloride 0.9% 50 ml @ 100 mls/hr IVPB Q24HR [facility] Rx#:[id number] Output: Urine 550 Uretheral (Tan) 550 Stool 1 Other: Voiding Method Indwelling Catheter Indwelling Catheter Indwelling Catheter - Exam Gen: frail, cachexic, alert, sitting up in bed, pleasant CV: RRR, no murmur Lungs: clear throughout Abd: soft, nontender Ext: no edema Neuro: bilateral weakness, sensation intact, reflexes 1+, psychomotor retardation. Microbiology 01/13/19 14:26 Blood Blood Culture - Final No Growth after 144 hours 01/13/19 14:20 Blood Blood Culture - Final No Growth after 144 hours 01/17/19 13:40 Cerebral Spinal Fluid CSF Gram Stain - Preliminary 01/17/19 13:40 Cerebral Spinal Fluid CSF Culture - Preliminary 01/13/19 15:15 Urine,Catheterized Urine Culture - Final Escherichia coli 01/12/19 18:30 Urine,Voided Urine Culture - Final Escherichia coli - Labs CBC & Chem 7: 01/20/19 06:31 01/21/19 07:20 Labs: Abnormal Lab Results - Last 24 Hours (Table) 01/20/19 01/21/19 Range/Units 23:21 00:04 Potassium 3.4 L (3.5-5.1) mmol/L POC Glucose (mg/dL) 100 H (75-99) mg/dL Assessment and Plan Assessment: 1) Protein-calorie malnutrition, severe Current Visit: Yes Status: Acute Code(s): E43 - UNSPECIFIED SEVERE PROTEIN- CALORIE MALNUTRITION SNOMED Code(s): 590872671 (2) Cachexia Current Visit: Yes Status: Acute Code(s): R64 - CACHEXIA SNOMED Code(s): 209016681 (3) Chronic pain Current Visit: Yes Status: Acute Code(s): G89.29 - OTHER CHRONIC PAIN SNOMED Code(s): 87763574 (4) Presence of intrathecal pump Current Visit: Yes Status: Acute Code(s): Z97.8 - PRESENCE OF OTHER SPECIFIED DEVICES SNOMED Code(s): 603842831 (5) Elevated liver enzymes Current Visit: Yes Status: Acute Code(s): R74.8 - ABNORMAL LEVELS OF OTHER SERUM ENZYMES SNOMED Code(s): 447751395 (6) Hypoalbuminemia Current Visit: Yes Status: Acute Code(s): E88.09 - OTH DISORDERS OF PLASMA- PROTEIN METABOLISM, NEC SNOMED Code(s): 585300976 (7) Macrocytic anemia, status post normal EGD Current Visit: Yes Status: Acute Code(s): D53.9 - NUTRITIONAL ANEMIA, UNS PECIFIED SNOMED Code(s): 23833940 (8) Malnutrition Current Visit: Yes Status: Acute Code(s): E46 - UNSPECIFIED PROTEIN-CALORIE MALNUTRITION SNOMED Code(s): 60907100 (9) Unintentional weight loss, status post reported normal EGD, biopsies pending Current Visit: Yes Status: Acute Code(s): R63.4 - ABNORMAL WEIGHT LOSS SNOMED Code(s): 635423167 (10) Weakness Current Visit: Yes Status: Acute Code(s): R53.1 - WEAKNESS SNOMED Code(s): 84054857 (11) opiate withdrawal (12) acute metabolic, toxic encephalopathy secondary to pain pump (13) hypokalemia (14) nonspecific areas of abnormal signal involving posterior cerebellar peduncles, nonspecific areas of abnormal signal involving neris, throughout the paraventricular white matter-neurology following. Plan: Continue on current medication regime ,monitoring and symptomatic treatment. Discharge planning in progress pending insurance authorization for subacute rehab. Prognosis guarded given multiple complex medical issues. The impression and plan of care has been dictated as directed. : I performed a history and examination of this patient, discussed the same with the dictator. I agree with the dictator's note ,documented as a scribe. Any additional findings or plans will be noted.
[2019-01-21 17:08] LABS: Glucose,Whole Blood 75 mg/dL (75-99)
[2019-01-21] MEDS: ALPRAZolam 0.25 MG TAB PO PRN (19:34)
[2019-01-21] MEDS: risperiDONE 1 MG TAB PO SCH (20:52)
[2019-01-21] MEDS: PRAMIPEXOLE 0.25 MG TAB PO SCH (20:52)
[2019-01-21] MEDS ORDERED: PYRIDOXINE 50 MG TAB PO SCH (21:00)
[2019-01-22 00:35] LABS: Glucose,Whole Blood 101 mg/dL (75-99)
[2019-01-22] MEDS: SODIUM CHLORIDE 0.9% 1,000 ML IV SCH (03:13)
[2019-01-22] MEDS: LEVOTHYROXINE 100 MCG TAB PO SCH (05:50)
[2019-01-22 07:01] LABS: Glucose,Whole Blood 90 mg/dL (75-99)
[2019-01-22] MEDS: HYOSCYAMINE SULFATE 0.375 MG TAB.ER.12H PO SCH (07:37)
[2019-01-22] MEDS: lamoTRIgine 100 MG TAB PO SCH (07:37)
[2019-01-22] MEDS: FLUoxetine HCL 20 MG CAP PO SCH ×2 (07:37)
[2019-01-22] MEDS: PYRIDOXINE 50 MG TAB PO SCH (07:38)
[2019-01-22] MEDS: MULTIVITAMINS, THERA 1 EACH TAB PO SCH (07:38)
[2019-01-22] MEDS: POTASSIUM CHLORIDE ER 10 MEQ TAB.ER.PRT PO SCH (07:38)
[2019-01-22] MEDS: PANTOPRAZOLE 40 MG TABLET PO SCH (07:38)
[2019-01-22] MEDS: FOLIC ACID 1 MG TAB PO SCH (07:38)
[2019-01-22] MEDS: THIAMINE 100 MG TAB PO SCH (07:38)
[2019-01-22] MEDS: PROMETHAZINE 25 MG TAB PO PRN (08:35)
--- NOTE | 2019-01-22 10:55 | P.PN ---
Subjective Progress Note Date: 01/22/19 This is a 48 yo F with history of chronic pain who has an intrathecal morphine pain pump who is admitted for symptomatic weakness, anemia, anasarca after an 80 lb unintentional weight loss over the past few months. She was evaluated by GI and aside from hepatic steatosis, remainder of GI workup has been negative. She had an MRI cervical/thoracic/lumbar spine and a CT chest/abd/pelvis with contrast which were largely unremarkable. Today she is drowsy and per nursing staff intermittently irritable. She has no specific complaint and would like to be discharged. 01/15/2019 evaluated by pain management yesterday, pain pump reported as being turned down to lowest setting. Complains of chronic back pain. Currently in opioid withdrawal, mumbling, slurring of speech, defensive, incontinent of bowel movement. Maintained on IV fluids. Potassium 3.2. Evaluated by GI and neurology with recommendations noted and appreciated.Repeat urine culture growing gram-negative bacilli, only 10-49,000 CFU/mL, probably colonization. 01/16/2019 LFTs improving. Albumin 1.9.more coherent today, cooperative, att empting to work with PT. Continues in opioid withdrawal, improved from yesterday. Reports chronic back pain currently at a 7-8. Intrathecal pain pump at the lowest dose setting continues. Reports she did not sleep well, secondary to her nerves, sweaty. Denies nausea vomiting or diarrhea. Hemoglobin 7.2. No signs or symptoms of active bleeding reported. NPO, EGD pending. Denies lightheadedness, dizziness or focal deficits. Denies chest pain, palpitations or shortness of breath. Repeat urine cultures reporting E. coli with colonic consults 10-49,000. Maintained on Rocephin. 01/17/2019 more alert today.completed EGD yesterday, reporting normal-appearing esophagus with no evidence of esophagitis or esophageal stricture, normal gastric pouch was normal Kyara-en-Y anastomosis with no evidence of stricture. Biopsies obtained. Tolerated procedure well. Evaluated by pain management yesterday.Intrathecal morphine pump interrogated with dose increased. Brain MRI , limited exam ,reporting nonspecific white matter changes with small faint areas of abnormal signal within the neris and posterior cerebellar peduncles- nonspecific finding possibly related to hepatic encephalopathy, remote microvascular ischemia, demyelinating process, vasculitis or Lyme's disease- further evaluation/recommendations as per neurology. LFTs improving with the exception of mild elevation of AST. Afebrile, WBC 11.5. 01/21/2019 Discharge planning in progress, accepted by subacute rehab., Author ization pending. No overnight events. Vital signs stable. 01/22/19 no overnight event. Sitting up in bed, complaining of lumbosacral pain. Opioid withdrawal resolved.VSS. CSF culture reporting no growth. Objective - Vital Signs Vital signs: Vital Signs Temp 98.1 F 01/22/19 03:48 Pulse 94 01/22/19 03:48 Resp 12 01/22/19 03:48 BP 114/76 01/22/19 03:48 Pulse Ox 99 01/22/19 03:48 Intake & Output 01/21/19 01/22/19 01/22/19 18:59 06:59 18:59 Intake Total 480 960 Output Total 800 Balance 480 160 Intake: Intake, IV Titration 480 720 Amount Sodium Chloride 0.9% 1, 480 720 000 ml @ 60 mls/hr IV . [id number] [facility] Rx#:[id number] Oral 240 Output: Urine 800 Other: Voiding Method Indwelling Catheter Indwelling Catheter - Exam Gen: frail, cachexic, alert, sitting up in bed, no acute distress CV: RRR, no murmur Lungs: clear throughout Abd: soft, nontender Ext: no edema Neuro: bilateral weakness, sensation intact, psychomotor retardation improving Microbiology 01/17/19 13:40 Cerebral Spinal Fluid CSF Gram Stain - Final 01/17/19 13:40 Cerebral Spinal Fluid CSF Culture - Final 01/13/19 14:26 Blood Blood Culture - Final No Growth after 144 hours 01/13/19 14:20 Blood Blood Culture - Final No Growth after 144 hours 01/13/19 15:15 Urine,Catheterized Urine Culture - Final Escherichia coli 01/12/19 18:30 Urine,Voided Urine Culture - Final Escherichia coli - Labs CBC & Chem 7: 01/20/19 06:31 01/21/19 07:20 Labs: Abnormal Lab Results - Last 24 Hours (Table) 01/22/19 Range/Units 00:34 POC Glucose (mg/dL) 101 H (75-99) mg/dL Microbiology - Last 24 Hours (Table) 01/17/19 13:40 CSF Gram Stain - Final Cerebral Spinal Fluid CSF Culture - Final Assessment and Plan Assessment: 1) Protein-calorie malnutrition, severe Current Visit: Yes Status: Acute Code(s): E43 - UNSPECIFIED SEVERE PROTEIN- CALORIE MALNUTRITION SNOMED Code(s): 433599217 (2) Cachexia Current Visit: Yes Status: Acute Code(s): R64 - CACHEXIA SNOMED Code(s): 655337693 (3) Chronic pain Current Visit: Yes Status: Acute Code(s): G89.29 - OTHER CHRONIC PAIN SNO MED Code(s): 49884545 (4) Presence of intrathecal pump Current Visit: Yes Status: Acute Code(s): Z97.8 - PRESENCE OF OTHER SPECIFIED DEVICES SNOMED Code(s): 075572287 (5) Elevated liver enzymes Current Visit: Yes Status: Acute Code(s): R74.8 - ABNORMAL LEVELS OF OTHER SERUM ENZYMES SNOMED Code(s): 645420508 (6) Hypoalbuminemia Current Visit: Yes Status: Acute Code(s): E88.09 - OTH DISORDERS OF PLASMA- PROTEIN METABOLISM, NEC SNOMED Code(s): 603373965 (7) Macrocytic anemia, status post normal EGD Current Visit: Yes Status: Acute Code(s): D53.9 - NUTRITIONAL ANEMIA, UNSPECIFIED SNOMED Code(s): 46594247 (8) Malnutrition Current Visit: Yes Status: Acute Code(s): E46 - UNSPECIFIED PROTEIN-CALORIE MALNUTRITION SNOMED Code(s): 25715721 (9) Unintentional weight loss, status post reported normal EGD, biopsies pending Current Visit: Yes Status: Acute Code(s): R63.4 - ABNORMAL WEIGHT LOSS SNOMED Code(s): 302191739 (10) Weakness Current Visit: Yes Status: Acute Code(s): R53.1 - WEAKNESS SNOMED Code(s): 50972938 (11) opiate withdrawal (12) acute metabolic, toxic encephalopathy secondary to pain pump, possibly also acute UTI with E. coli though repeat reported only 10-49,000 colonies.treated with IV antibiotics. (13) hypokalemia (14) nonspecific areas of abnormal signal involving posterior cerebellar peduncles, nonspecific areas of abnormal signal involving neris, throughout the paraventricular white matter-neurology following. Plan: Continue on current medication regime ,monitoring and symptomatic treatment. Significant clinical improvement. Discharge planning in progress pending insurance authorization for subacute rehab. Prognosis guarded given multiple complex medical issues. The impression and plan of care has been dictated as directed. : I performed a history and examination of this patient, discussed the same with the dictator. I agree with the dictator's note ,documented as a scribe. Any additional findings or plans will be noted.
[2019-01-22 11:36] LABS: Glucose,Whole Blood 89 mg/dL (75-99)
--- NOTE | 2019-01-22 11:48 | P.DS ---
Providers Date of admission: 01/13/19 13:15 Expected date of discharge: 01/22/19 Attending physician: Unruly Looney MD Consults: 01/14/19 09:03 Consult Physician Routine Consulting Provider: Joseline Ennis Consult Reason/Comments: weakness, weight loss, on morphine pump please eval dose Do you want consulting provider notified?: Yes Primary care physician: [facility] Course: Final Diagnoses: 1) Protein-calorie malnutrition, severe Current Visit: Yes Status: Acute Code(s): E43 - UNSPECIFIED SEVERE PROTEIN- CALORIE MALNUTRITION SNOMED Code(s): 867371782 (2) Cachexia Current Visit: Yes Status: Acute Code(s): R64 - CACHEXIA SNOMED Code(s): 077927034 (3) Chronic pain Current Visit: Yes Status: Acute Code(s): G89.29 - OTHER CHRONIC PAIN SNOMED Code(s): 36047507 (4) Presence of intrathecal pump Current Visit: Yes Status: Acute Code(s): Z97.8 - PRESENCE OF OTHER SPECIFIED DEVICES SNOMED Code(s): 869887017 (5) Elevated liver enzymes Current Visit: Yes Status: Acute Code(s): R74.8 - ABNORMAL LEVELS OF OTHER SERUM ENZYMES SNOMED Code(s): 938788799 (6) Hypoalbuminemia Current Visit: Yes Status: Acute Code(s): E88.09 - OTH DISORDERS OF PLASMA- PROTEIN METABOLISM, NEC SNOMED Code(s): 700100521 (7) Macrocytic anemia, status post normal EGD Current Visit: Yes Status: Acute Code(s): D53.9 - NUTRITIONAL ANEMIA, UNSPECIFIED SNOMED Code(s): 92946007 (8) acute metabolic, toxic encephalopathy secondary to pain pump, possibly also acute UTI with E. coli though repeat culture reported only 10-49,000 colonies. Treated with IV antibiotics. (9) Unintentional weight loss, status post reported normal EGD, biopsies pending Current Visit: Yes Status: Acute Code(s): R63.4 - ABNORMAL WEIGHT LOSS SNOMED Code(s): 389551756 (10) Weakness Current Visit: Yes Status: Acute Code(s): R53.1 - WEAKNESS SNOMED Code(s): 30369320 (11) opiate withdrawal (12) nonspecific areas of abnormal signal involving posterior cerebellar peduncles, nonspecific areas of abnormal signal involving neris, throughout the paraventricular white matter. Further follow-up with neurology outpatient. Hospital course: This is a 48 yo F with history of chronic pain who has an intrathecal morphine pain pump who is admitted for symptomatic weakness, anemia, anasarca after an 80 lb unintentional weight loss over the past few months. She was evaluated by GI and aside from hepatic steatosis, remainder of GI workup has been negative. She had an MRI cervical/thoracic/lumbar spine and a CT chest/abd/pelvis with contrast which were largely unremarkable. Today she is drowsy and per nursing staff intermittently irritable. She has no specific complaint and would like to be discharged. 01/15/2019 evaluated by pain management yesterday, pain pump reported as being turned down to lowest setting. Complains of chronic back pain. Currently in opioid withdrawal, mumbling, slurring of speech, defensive, incontinent of bowel movement. Maintained on IV fluids. Potassium 3.2. Evaluated by GI and neurology with recommendations noted and appreciated.Repeat urine culture growing gram-negative bacilli, only 10-49,000 CFU/mL, probably colonization. 01/16/2019 LFTs improving. Albumin 1.9.more coherent today, cooperative, attempting to work with PT. Continues in opioid withdrawal, improved from yesterday. Reports chronic back pain currently at a 7-8. Intrathecal pain pump at the lowest dose setting continues. Reports she did not sleep well, secondary to her nerves, sweaty. Denies nausea vomiting or diarrhea. Hemoglobin 7.2. No signs or symptoms of active bleeding reported. NPO, EGD pending. Denies lightheadedness, dizziness or focal deficits. Denies chest pain, palpitations or shortness of breath. Repeat urine cultures reporting E. coli with colonic consults 10-49,000. Maintained on Rocephin. 01/17/2019 more alert today.completed EGD yesterday, reporting normal-appearing esophagus with no evidence of esophagitis or esophageal stricture, normal gastric pouch was normal Kyara-en-Y anastomosis with no evidence of stricture. Biopsies obtained. Tolerated procedure well. Evaluated by pain management yesterday.Intrathecal morphine pump interrogated with dose increased. Brain MRI , limited exam ,reporting nonspecific white matter changes with small faint areas of abnormal signal within the neris and posterior cerebellar peduncles- nonspecific finding possibly related to hepatic encephalopathy, remote microvascular ischemia, demyelinating process, vasculitis or Lyme's disease- further evaluation/recommendations as per neurology. LFTs improving with the exception of mild elevation of AST. Afebrile, WBC 11.5. 01/18/19 her strength and mentation had improved. She was evaluated by GI and Neurology and workup was negative and consultants signed off. Her pain pump settings were decreased from 500 mcg / hr to 75 mcg /hr. She is recommended to continue with lowest tolerable pain pump setting. She is encouraged to use phenergan for nasuea and continue with protein shakes daily. She is discharged in stable condition with guarded prognosis and will follow up with her PCP and Neurologist. 01/21/2019 Discharge planning in progress, accepted by subacute rehab., Authorization pending. No overnight events. Vital signs stable. 01/22/19 no overnight event. Sitting up in bed, complaining of lumbosacral pain. Opioid withdrawal resolved.VSS. CSF culture reporting no growth. Significant clinical improvement. Patient is being discharged to subacute rehab in a stable condition with guarded prognosis. - Exam Gen: frail, cachexic, alert, sitting up in bed, no acute distress CV: RRR, no murmur Lungs: clear throughout Abd: soft, nontender Ext: no edema Neuro: bilateral weakness, sensation intact, psychomotor retardation improving Microbiology 01/17/19 13:40 Cerebral Spinal Fluid CSF Gram Stain - Final 01/17/19 13:40 Cerebral Spinal Fluid CSF Culture - Final 01/13/19 14:26 Blood Blood Culture - Final No Growth after 144 hours 01/13/19 14:20 Blood Blood Culture - Final No Growth after 144 hours 01/13/19 15:15 Urine,Catheterized Urine Culture - Final Escherichia coli 01/12/19 18:30 Urine,Voided Urine Culture - Final Escherichia coli The impression and plan of care has been dictated as directed. : I performed a history and examination of this patient, discussed the same with the dictator. I agree with the dictator's note ,documented as a scribe. Any additional findings or plans will be noted. Patient Condition at Discharge: Stable Plan - Discharge Summary New Discharge Prescriptions: New Folic Acid 1 mg PO DAILY@1200 tab Pyridoxine [Vitamin B-6] 50 mg PO BID tab Potassium Chloride ER [K-Dur 10] 10 meq PO BID tab.er.prt Multivitamins, Thera [Multivitamin (formulary)] 1 each PO DAILY@1200 tab Thiamine [Vitamin B-1] 100 mg PO DAILY@1200 tab Continue FLUoxetine HCL [PROzac] 40 mg PO DAILY risperiDONE [RisperDAL] 1 mg PO HS Ergocalciferol (Vitamin D2) [Drisdol] 50,000 unit PO MO Promethazine HCl 12.5 mg PO Q6H PRN PRN Reason: Nausea And Vomiting Pramipexole [Mirapex] 0.25 mg PO HS Pantoprazole [Protonix] 40 mg PO DAILY Levothyroxine Sodium [Synthroid] 100 mcg PO DAILY lamoTRIgine [LaMICtal] 250 mg PO BID Hyoscyamine Sulfate [Levbid] 0.375 mg PO DAILY FLUoxetine HCL [PROzac] 20 mg PO DAILY Morphine 1mg/1ml Pain Pump 1 dose INTRATHECA CONTINUOUS Discontinued Potassium Chloride [Klor-Con 10] 10 meq PO BID Cholestyramine (with Sugar) [Cholestyramine Packet] 4 gm PO DAILY PRN PRN Reason: Constipation Discharge Medication List FLUoxetine HCL [PROzac] 40 mg PO DAILY 01/23/15 [History] Ergocalciferol (Vitamin D2) [Drisdol] 50,000 unit PO MO 01/12/19 [History] FLUoxetine HCL [PROzac] 20 mg PO DAILY 01/12/19 [History] Hyoscyamine Sulfate [Levbid] 0.375 mg PO DAILY 01/12/19 [History] Levothyroxine Sodium [Synthroid] 100 mcg PO DAILY 01/12/19 [History] Morphine 1mg/1ml Pain Pump 1 dose INTRATHECA CONTINUOUS 01/12/19 [History] Pantoprazole [Protonix] 40 mg PO DAILY 01/12/19 [History] Pramipexole [Mirapex] 0.25 mg PO HS 01/12/19 [History] Promethazine HCl 12.5 mg PO Q6H PRN 01/12/19 [History] lamoTRIgine [LaMICtal] 250 mg PO BID 01/12/19 [History] risperiDONE [RisperDAL] 1 mg PO HS 01/12/19 [History] Folic Acid 1 mg PO DAILY@1200 tab 01/18/19 [Rx] Pyridoxine [Vitamin B-6] 50 mg PO BID tab 12/06/19 [Rx] Multivitamins, Thera [Multivitamin (formulary)] 1 each PO DAILY@1200 tab 01/22/19 [Rx] Potassium Chloride ER [K-Dur 10] 10 meq PO BID tab.er.prt 01/22/19 [Rx] Thiamine [Vitamin B-1] 100 mg PO DAILY@1200 tab 01/22/19 [Rx] Follow up Appointment(s)/Referral(s): Annette Looney DO [Primary Care Provider] - 1 Week (after dc from Rehab) Neurology, of Pt's choice [Other] - 1 Week Pain management services, [Other] - 1 Week (To evaluate pain pump.) Activity/Diet/Wound Care/Special Instructions: [facility] Diet: Regular Activity: as tolerated cbc,bmp in 3 days Heating pad to lower back. Discharge Disposition: TRANSFER TO SNF/ECF
[2019-01-22 12:10] VITALS: BP 111/77; PULSE 103; RESP 16; TEMP 98.9
--- NOTE | 2019-01-24 01:17 | CDI ---
Documentation Clarification Form Date: 01/24/19 From: Jarret Ambriz Phone: If you have a question about this query, please contact Afshan Padilla, Institute Scientist at [phone] between 8am and 5pm. Admit Date: Discharge Date: Patient Name: Visit Number: ATTENTION: The Clinical Documentation Specialists (CDI) and [facility] Coding Staff appreciate your assistance in clarifying documentation. Please respond to the clarification below the line at the bottom and electronically sign. The CDI & [facility] Coding staff will review the response and follow-up if needed. Please note: Queries are made part of the Legal Health Record. If you have any questions, please contact the author of this message via ITS. Dear Aayush Mccauley., Patient admitted with Altered Mental Status was documented in the ER evaluation, History and Physical and consult and further clarification is needed. History/Risk Factors: Chronic pain syndrome on pain pump, UTI, Opoiate Clinical Indicators: 48-year-old female with present with weakness in upper and lower extremities.She has lower extremity swelling.She is awake, alert, drowsy.She has had progressive weight loss over 2 months estimated to be 80 pounds. Vital signs on admission: 88/59 97 18 98.0, 86/48 93 18 98.6 Labs: wbc 11.4, hgb 8.5, 7.4, hct 26.7, 23.3; UA: Large Leukocyte Esterase, Nitrite Positive, Urine Culture: Final Positive for Escherichia coli Chest x-ray: fluid overload with anasarca, mesenteric congestion trace ascites and pleural effusions. GI () Patient somewhat lethargic and confused altered mental status, probably related to morphine pain pump Treatment: Neurological assessment per protocol Rocephin IV Monitor CBC, Lytes, IV Fluids In your professional opinion, Can you please clarify Toxic Encephalopathy secondary to opiate drugs be further specified as follows? Overdose of opiate drugs Adverse effect of opiate drugs Other please specify Adverse effect of opiate drugs MTDD
== END 2019-01-22 13:30 | DRG 91 ==
LOC: SUPCPDRO 17:37 → EC 17:37 → 3NMEDONC 19:20 → OBSVTOIN 01-13 13:15
PROVIDERS: ADMIT Family Medicine; ATTEND Family Medicine
PROC: 0DJ08ZZ Inspection of Upper Intestinal Tract, Via Natural or Artificial Opening Endoscopic (ICD-10-PCS; principal; 2019-01-16 09:35)
DX: G92 Toxic encephalopathy (principal); E43 Unspecified severe protein-calorie malnutrition; N39.0 Urinary tract infection, site not specified; E87.1 Hypo-osmolality and hyponatremia; F11.23 Opioid dependence with withdrawal; R64 Cachexia; G89.4 Chronic pain syndrome; F41.9 Anxiety disorder, unspecified; I95.89 Other hypotension; F31.9 Bipolar disorder, unspecified; F17.200 Nicotine dependence, unspecified, uncomplicated; K57.90 Diverticulosis of intestine, part unspecified, without perforation or abscess without bleeding; K70.9 Alcoholic liver disease, unspecified; T40.605A Adverse effect of unspecified narcotics, initial encounter; K59.00 Constipation, unspecified; M19.90 Unspecified osteoarthritis, unspecified site; R13.10 Dysphagia, unspecified; E87.6 Hypokalemia; E83.51 Hypocalcemia; E03.9 Hypothyroidism, unspecified; D53.9 Nutritional anemia, unspecified; B96.20 Unspecified Escherichia coli [E. coli] as the cause of diseases classified elsewhere; D50.9 Iron deficiency anemia, unspecified; Z79.890 Hormone replacement therapy; Z79.899 Other long term (current) drug therapy; Z83.3 Family history of diabetes mellitus; Z91.81 History of falling
CPT/HCPCS: 36415; 43239; 62270; 70450; 70553; 71046; 71260; 72125; 72128; 72131; 72141; 72146; 72148; 74177; 76700; 80048; 80053; 80074; 80320; 81001; 82140; 82550; 82607; 82728; 82746; 82945; 83036; 83540; 83550; 83605; 83735; 84100; 84132; 84157; 84165; 84207; 84443; 84446; 84466; 84484; 85025; 85045; 85610; 85652; 85730; 86038; 86140; 86850; 86900; 86901; 87040; 87070; 87077; 87086; 87186; 87205; 87390; 88305; 89050; 93005; 96361; 96365; 96366; 96375; 99285